=== PATIENT | female | born 1940 | race Caucasian/White ===

== ENCOUNTER 2016-10-27 07:53 | Day surgery (SDC) | payer MEDICARE ==
[2016-10-27] VITALS (8 sets, daily range): BP systolic 95–152; BP diastolic 44–78; PULSE 71–93; RESP 17–20; TEMP 97.6–97.9; O2SAT 95–98
[~2016-10-27] VITALS: Ht 160 cm; Wt 59.1 kg
[~2016-10-27 07:53] MED LIST: ALPR0.25 PO; CITA40 PO; TARC150T PO
[2016-10-27] MEDS ORDERED: OSIM80TA PO (08:12)
[2016-10-27] MEDS ORDERED: DULO1CAP3 PO (08:12)
[2016-10-27] MEDS ORDERED: FOLI1TAB6 PO (08:12)
[2016-10-27] MEDS ORDERED: ACET-822 PO (08:12)
[2016-10-27 08:46] LABS: AUTOMATED NEUTROPHIL # 3.5 TH/MM3 (1.8-7.7); BASOPHIL % 0.3 % (0.0-2.0); EOSINOPHIL # 0.1 TH/MM3 (0-0.4); EOSINOPHIL % 2.6 % (0.0-4.0); HEMATOCRIT 34.2 % (35.0-46.0); HEMO FLAGS DIFF FINAL; LYMPH % 19.3 % (9.0-44.0); MEAN CELL VOLUME 96.9 FL (80.0-100.0); MEAN CORPUSCULAR HEMOGLOBIN 32.4 PG (27.0-34.0); MEAN CORPUSCULAR HGB CONC 33.4 % (32.0-36.0); NEUT % 67.8 % (16.0-70.0); PLATELET COUNT 199 TH/MM3 (150-450); RED BLOOD COUNT 3.53 MIL/MM3 (4.00-5.30); RED CELL DISTRIBUTION WIDTH 14.5 % (11.6-17.2); WHITE BLOOD COUNT 5.2 TH/MM3 (4.0-11.0)
[2016-10-27] MEDS ORDERED: LIDOCAINE 1%/EPINEPHrine 1:100,000 SOLN 20 ML VIAL ONE (08:57)
[2016-10-27] MEDS ORDERED: fentaNYL CITRATE 250 MCG/5 ML AMP ONE (08:59)
[2016-10-27] MEDS ORDERED: MIDAZOLAM HCL 5 MG/5 ML VIAL ONE (08:59)
[2016-10-27] MEDS ORDERED: SODIUM CHLOR 0.9% 1000 ML IV SCH (09:00)
[2016-10-27] MEDS ORDERED: SODIUM CHLORIDE 0.9% FLUSH 10 ML FLUSH IV FLUSH PRN (09:15)
--- NOTE | 2016-10-27 11:42 | RADRPT ---
EXAM DATE/TIME: 10/27/2016 09:23 [facility] COMPARISON: No previous studies available for comparison. INDICATIONS : Left lung biopsy SEDATION TIME: 30 minutes BIOPSY SITE: Left lung MEDICATION(S): 1.) 3 mg midazolam (Versed) IV 2.) 150 mcg fentanyl (Sublimaze) IV DEVICE(S): 1.) 18 gauge Alva blunt needle 2.) 20 gauge Temno core biopsy needle MEDICAL HISTORY : Carcinoma, breast. Carcinoma, lung. SURGICAL HISTORY : ENCOUNTER: Initial ACUITY: 1 day PAIN SCORE: 0/10 LOCATION: lower chest A total of three core specimen(s) were obtained and sent to the laboratory for pathologic evaluation. PROCEDURE: 1. CT guided lung biopsy. 2. Conscious sedation with continuous EKG and oximetry monitoring. 3. EKG and oximetry remained stable throughout the procedure. Prior to the procedure informed consent was obtained. Any appropriate prior imaging studies were rev iewed. Using automated exposure control and adjustment of the mA and/or kV according to patient size, radiation dose was kept as low as reasonably achievable to obtain optimal diagnostic quality images. DICOM format image data is available electronically for review and comparison. The site was prepped in a sterile fashion. Full sterile technique was used, including cap, mask, brian rile gloves and gown and a large sterile sheet. Hand hygiene and 2% chlorhexidine and/or betadine/al cohol prep was utilized per protocol for cutaneous antisepsis. The skin and subcutaneous tissues wer e infiltrated with local anesthetic solution. Under CT guidance an 18 gauge blunt was placed down to the lesion posteriorly in the left lung. 3 co res were obtained. Material was submitted for culture as well. Follow-up CT scan reveals no pneumothorax. Conscious sedation was performed with the prescribed dosages and duration as above in the presence of an independent trained radiology nurse to assist in the monitoring of the patient. EKG and oximetry remained stable throughout the procedure. The patient tolerated the procedure well and there were no complications. The patient was sent to Radiology Outpatient Unit in stable condition. CONCLUSION: Uncomplicated CT guided biopsy. Preliminary pathology is a cellular specimen. Cultures were canceled. Betnon Fernández MD FACR on October 27, 2016 at 11:38 Board Certified Radiologist. This report was verified electronically.
--- NOTE | 2016-10-27 12:45 | RADRPT ---
EXAM DATE/TIME: 10/27/2016 12:17 [facility] COMPARISON: No previous studies available for comparison. INDICATIONS : Left lung biopsy. MEDICAL HISTORY : Carcinoma, lung. Carcinoma, breast. SURGICAL HISTORY : port placement ENCOUNTER: Initial ACUITY: 1 day PAIN SCORE: 2/10 LOCATION: Left upper chest FINDINGS: The report is in good position. There is no pneumothorax following left lung biopsy. The heart and p ulmonary vascularity are normal. CONCLUSION: There is no pneumothorax following left lung biopsy. Benton Fernández MD FACR on October 27, 2016 at 12:42 Board Certified Radiologist. This report was verified electronically.
== END 2016-10-27 14:20 | disposition home or self-care (01) ==
LOC: HRAD 07:53 → HRIP 07:57 → HRAD 14:20
PROVIDERS: ATTEND Internal Medicine Hematology & Oncology
DX: R91.8 Other nonspecific abnormal finding of lung field (principal); Z01.818 Encounter for other preprocedural examination; Z85.3 Personal history of malignant neoplasm of breast; Z85.118 Personal history of other malignant neoplasm of bronchus and lung
CPT/HCPCS: 32405; 71010; 77012; 85025; 87015; 87070; 87102; 87116; 87205; 87206; 88305; 88333; 88341; 88342; J2250; J3010; J7030

== ENCOUNTER 2018-01-27 14:54 | Inpatient (IN) ==
--- NOTE | 2018-01-27 16:09 | ED ---
HPI General Chief complaint: Altered Mental Status Stated complaint: AMS Time Seen by Provider: 01/27/18 15:44 History of Present Illness HPI narrative: This is a 77-year-old female with history of metastatic adenocarcinoma of the lung, presents via EMS for evaluation. The patient reports that she underwent chemotherapy approximately 2 weeks ago via her oncologist Dr. Livingston. She reports over the past 2 weeks she has had generalized weakness, especially in her legs. She reports that she has been having difficulty to ambulate secondary to weakness. The patient reports that typically she ambulates with a walker. She currently lives with her sister. She reports that she is also forgetful and this is making it difficult for her to provide additional history. During review of systems she reports a dry cough which is not new. She denies chest pain, shortness of breath, headache, dizziness, lightheadedness, nausea, vomiting, abdominal pain. Symptoms are moderate. She has no other complaints at this time. Related Data Home Medications Medication Instructions Recorded Confirmed dexamethasone mg PO 01/27/18 duloxetine mg PO 01/27/18 ondansetron HCl mg PO 01/27/18 ranitidine HCl mg PO DAILY 01/27/18 tramadol mg PO 01/27/18 Allergies Allergy/AdvReac Type Severity Reaction Status Date / Time No Known Allergies Allergy Unverified 01/27/18 15:41 Review of Systems ROS: all other systems reviewed are negative [facility] Medical History Medical History Adenocarcinoma of lung, stage 4 (Acute) Adult failure to thrive (Acute) Bilateral cataracts (Acute) Bone metastases (Acute) Brain metastases (Acute) History of breast cancer (Acute) Surgical History Surgical History History of lumpectomy (Acute) S/P breast biopsy (Acute) Family History Family History Father Carcinoma, lung Social History Social History Second Hand Smoke Exposure: Yes Smoking Status: Former smoker How Often Do You Have a Drink Containing Alcohol: Never Recent Travel in [place] within the Last 8 Weeks: No Recent Out of Country Travel within the Last 8 Weeks: No Exam Narrative Exam Narrative: GENERAL: Well-developed well-nourished female no acute distress. Alert and oriented x3. SKIN: Warm and dry. HEAD: Atraumatic. Normocephalic. EYES: Pupils equal and round. No scleral icterus. No injection or drainage. ENT: No nasal bleeding or discharge. Mucous membranes pink and moist. NECK: Trachea midline. No JVD. CARDIOVASCULAR: Regular rate and rhythm. No murmur appreciated. RESPIRATORY: No accessory muscle use. Crackles noted at the lung bases. GASTROINTESTINAL: Abdomen soft, non-tender, nondistended. Hepatic and splenic margins not palpable. MUSCULOSKELETAL: No obvious deformities. No clubbing. No cyanosis. No edema. NEUROLOGICAL: Awake and alert. No obvious cranial nerve deficits. Motor grossly within normal limits. Normal speech. Course Initial Documented Vital Signs Temperature 99 F 01/27/18 15:33 Pulse Rate 96 H 01/27/18 15:33 Respiratory Rate 17 01/27/18 15:33 Blood Pressure 161/78 H 01/27/18 15:33 Pulse Oximetry 100 01/27/18 15:33 Last Documented Vital Signs Temperature 99 F 01/27/18 15:33 Pulse Rate 103 H 01/27/18 19:50 Respiratory Rate 18 01/27/18 19:50 Blood Pressure 101/55 L 01/27/18 19:50 Pulse Oximetry 100 01/27/18 19:50 Medical Decision Making SULLY Attestation SULLY supervised visit: Yes Attestation: I, Dr. Huynh, have reviewed the advance practice practitioner's documentation and am in agreement, met with the patient face to face, made the diagnosis, and the medical decision making was done by me. *My assessment and Findings: Patient is a 77-year-old female who presents with complaint of worsening confusion and increased difficulty concentrating. She also describes difficulty walking but states this is chronic. She appears chronically but not acutely ill. CT unremarkable. Xray shows a pneumonia - antibiotics given. Labs relatively unremarkable. She has been admitted to the hospitalist service. [facility] Narrative Medical decision making narrative: The patient was placed on ECG monitoring pulse oximetry. A 12-lead EKG was obtained revealing sinus rhythm with T wave inversions noted in III and AVF. Lab work, chest x-ray, urinalysis ordered. Chest x-ray reveals left-sided pneumonia. Lab work reveals pancytopenia. Potassium is 3.1, oral potassium chloride administered. IV Rocephin and azithromycin administered. Dr. Livingston saw the patient at bedside and does report that she seems more confused than usual. Calcium 8.1, potassium 3.1, oral potassium chloride administered. CT of the brain reveals no acute abnormalities. At this point time the plan is to admit the patient for further treatment. Medical Screen Exam Complete: Yes Emergency Medical Condition: Yes Differential Diagnosis Differential Diagnosis: Metastatic disease versus failure to thrive versus sepsis versus UTI versus delirium versus dehydration Lab Data Result diagrams: 01/27/18 16:43 01/27/18 16:43 Lab Results 01/27/18 01/27/18 01/27/18 Range/Units 15:36 16:43 16:43 WBC 2.3 L (4.0-11.0) th/mm3 RBC 2.69 L (4.00-5.30) mil/mm3 Hgb 8.8 L (11.6-15.3) gm/dL Hct 25.7 L (35.0-46.0) % MCV 95.5 (80.0-100.0) fL MCH 32.7 (27.0-34.0) pg MCHC 34.3 (32.0-36.0) % RDW 14.4 (11.6-17.2) % Plt Count 68 L (150-450) th/mm3 MPV 9.0 (7.0-11.0) fL Prelim Diff (Auto) Slide review pending Neut % (Auto) 59.5 (16.0-70.0) % Lymph % (Auto) 28.2 (9.0-44.0) % Carlton % (Auto) 11.7 H (0.0-8.0) % Eos % (Auto) 0.1 (0.0-4.0) % Baso % (Auto) 0.5 (0.0-2.0) % Neut # (Auto) 1.4 L (1.8-7.7) th/mm3 Lymph # (Auto) 0.6 L (1.0-4.8) th/mm3 Carlton # (Auto) 0.3 (0.0-0.9) th/mm3 Eos # (Auto) 0.0 (0.0-0.4) th/mm3 Baso # (Auto) 0.0 (0.0-0.2) th/mm3 WBC Differential . Diff Scan Auto diff confirmed Differential Comment . Platelet Estimate Low L (Normal) Platelet Morphology Normal (Normal) Sodium 137 (136-145) meq/L Potassium 3.1 L (3.5-5.1) meq/L Chloride 103 (98-107) meq/L Carbon Dioxide 24.1 (21.0-32.0) meq/L Anion Gap 10 (5-15) meq/L BUN 15 (7-18) mg/dL Creatinine 0.63 (0.50-1.00) mg/dL Estimated GFR Greater than 89 (>89) mL/min POC Glucose 88 (68-110) mg/dl Random Glucose 79 (74-106) mg/dL Calcium 7.1 L* (8.5-10.1) mg/dL Prot Corrected Calcium 8.1 L (8.5-10.1) mg/dL Total Bilirubin 0.2 (0.2-1.0) mg/dL AST 24 (15-37) U/L ALT 21 (10-53) U/L Alkaline Phosphatase 65 (45-117) U/L Total Creatine Kinase 123 (26-192) U/L Troponin I 0.02 (0.02-0.05) ng/mL Total Protein 5.2 L (6.4-8.2) g/dL Albumin 1.9 L (3.4-5.0) g/dL TSH 0.811 (0.358-3.740) uIU/mL Urine Color (Yellw/Straw) Urine Clarity (Clear) Urine pH (5.0-8.5) Ur Specific Tutor [place] (1.002-1.035) Urine Protein (Neg-Trace) mg/dL Urine Glucose (UA) (Negative) mg/dL Urine Ketones (Negative) mg/dL Urine Occult Blood (Negative) Urine Nitrate (Negative) Urine Bilirubin (Negative) Urine Urobilinogen (Less than 2) mg/dL Ur Leukocyte Esterase (Negative) Urine WBC (0-5) /hpf Hyaline Casts (0-3) /lpf Urine Mucus (Occasional) /lpf Micro UA Comment Ur Microscopic Review Urine Culture Comments 01/27/18 Range/Units 17:30 WBC (4.0-11.0) th/mm3 RBC (4.00-5.30) mil/mm3 Hgb (11.6-15.3) gm/dL Hct (35.0-46.0) % MCV (80.0-100.0) fL MCH (27.0-34.0) pg MCHC (32.0-36.0) % RDW (11.6-17.2) % Plt Count (150-450) th/mm3 MPV (7.0-11.0) fL Prelim Diff (Auto) Neut % (Auto) (16.0-70.0) % Lymph % (Auto) (9.0-44.0) % Carlton % (Auto) (0.0-8.0) % Eos % (Auto) (0.0-4.0) % Baso % (Auto) (0.0-2.0) % Neut # (Auto) (1.8-7.7) th/mm3 Lymph # (Auto) (1.0-4.8) th/mm3 Carlton # (Auto) (0.0-0.9) th/mm3 Eos # (Auto) (0.0-0.4) th/mm3 Baso # (Auto) (0.0-0.2) th/mm3 WBC Differential Diff Scan Differential Comment Platelet Estimate (Normal) Platelet Morphology (Normal) Sodium (136-145) meq/L Potassium (3.5-5.1) meq/L Chloride (98-107) meq/L Carbon Dioxide (21.0-32.0) meq/L Anion Gap (5-15) meq/L BUN (7-18) mg/dL Creatinine (0.50-1.00) mg/dL Estimated GFR (>89) mL/min POC Glucose (68-110) mg/dl Random Glucose (74-106) mg/dL Calcium (8.5-10.1) mg/dL Prot Corrected Calcium (8.5-10.1) mg/dL Total Bilirubin (0.2-1.0) mg/dL AST (15-37) U/L ALT (10-53) U/L Alkaline Phosphatase (45-117) U/L Total Creatine Kinase (26-192) U/L Troponin I (0.02-0.05) ng/mL Total Protein (6.4-8.2) g/dL Albumin (3.4-5.0) g/dL TSH (0.358-3.740) uIU/mL Urine Color Betina (Yellw/Straw) Urine Clarity Hazy H (Clear) Urine pH 5.0 (5.0-8.5) Ur Specific Tutor Key 1.026 (1.002-1.035) Urine Protein 30 H (Neg-Trace) mg/dL Urine Glucose (UA) Negative (Negative) mg/dL Urine Ketones Negative (Negative) mg/dL Urine Occult Blood Negative (Negative) Urine Nitrate Negative (Negative) Urine Bilirubin Negative (Negative) Urine Urobilinogen Less than 2 (Less than 2) mg/dL Ur Leukocyte Esterase Negative (Negative) Urine WBC 3 (0-5) /hpf Hyaline Casts 7 (0-3) /lpf Urine Mucus Few H (Occasional) /lpf Micro UA Comment Cath-culture not ind Ur Microscopic Review Not Reportable Urine Culture Comments Cath-cult not ind Imaging Data Radiologist's impression: Chest X-Ray 01/27/18 16:06 CONCLUSION: Left lung base consolidation may represent pneumonia. Left apical pleural thickening and parenchymal process of uncertain age possibly chronic. Head CT 01/27/18 16:07 CONCLUSION: 1. No acute intracranial abnormality demonstrated. 2. Atrophy and chronic white matter changes. 3. Stable subcentimeter focus of parenchymal enhancement in the region of the left basal ganglia/insular cortex. Discharge Plan Discharge Disposition Patient Disposition: 30 Still Patient Discharge Condition Condition: Stable Discharge Details Diagnosis: Altered mental status, Pneumonia, Generalized weakness, Hypokalemia Physicians Team ED Provider: Maria Huynh ED Midlevel Provider: Tato Wren Primary Care Provider: Lawrence Bunch Attending Provider: Yeimy Lou Other Providers: Bernadette Mathews Status ED Status: Admitted Observation Patient
--- NOTE | 2018-01-27 17:17 | XR ---
EXAM DATE: 01/27/2018 4:06 PM EDT AGE/SEX: 77 years / Female INDICATIONS: Cough. CLINICAL DATA: This is the patient's initial encounter. Patient reports that signs and symptoms have been present for 1 day and indicates a pain score of 0/10. MEDICAL/SURGICAL HISTORY: Carcinoma, lung. . [place]. COMPARISON: No prior exams available for comparison. FINDINGS: Right IJ line is present with tip overlapping the expected region of the SVC. Left lung b ase consolidation is present with pleural thickening in left apex and chronic parenchymal changes lef t upper lung as well. Heart and mediastinum are unremarkable for technique. CONCLUSION: Left lung base consolidation may represent pneumonia. Left apical pleural thickening and parenchymal process of uncertain age possibly chronic. Electronically signed by: Sameer Rosa MD 01/27/2018 5:16 PM EDT
[2018-01-27 17:28] LABS: Baso % (Auto) 0.5 % (0.0-2.0); Eos % (Auto) 0.1 % (0.0-4.0); Hematocrit 25.7 % (35.0-46.0); Hemoglobin 8.8 gm/dL (11.6-15.3); Lymph # (Auto) 0.6 th/mm3 (1.0-4.8); Lymph % (Auto) 28.2 % (9.0-44.0); Mean Corpuscular HGB Conc 34.3 % (32.0-36.0); Mean Corpuscular Hemoglobin 32.7 pg (27.0-34.0); Mean Corpuscular Volume 95.5 fL (80.0-100.0); Mono # (Auto) 0.3 th/mm3 (0.0-0.9); Mono % (Auto) 11.7 % (0.0-8.0); Neut # (Auto) 1.4 th/mm3 (1.8-7.7); Neut % (Auto) 59.5 % (16.0-70.0); Platelet Count 68 th/mm3 (150-450); Red Blood Count 2.69 mil/mm3 (4.00-5.30); Red Cell Distribution Width 14.4 % (11.6-17.2); White Blood Count 2.3 th/mm3 (4.0-11.0)
[2018-01-27] MEDS ORDERED: Azithromycin Inj 500 MG in Sodium Chlor 0.9% Inj 250 ML IV.SIG ONE (17:31)
--- NOTE | 2018-01-27 18:02 | P.CON ---
History of Present Illness Service: Hematology/ONcology. Consult date: 01/27/18 Primary Care Provider: Lawrence Bunch MD Family Provider: Lawrence Bunch MD Chief Complaint: Confusion, weakness, fatigue. History of Present Illness: Ms. Cross is an 77-year-old female who is well-known to me from my outpatient practice. Combination systemic therapy with carboplatin, pemetrexed, Avastin in July 2012 she was initiated onThe patient was diagnosed with metastatic adenocarcinoma of the lung initially in June 2012, the patient had EGFR mutation positive disease, after receiving 1 cycle of this combination she was transitioned to targeted therapy with erlotinib. 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 I would like to add patient did receive immunotherapy as well for about 8 months earlier this year, this was sandwiched in between Tagrisso treatments. Most recently she was found to have disease progression and was transitioned to palliative systemic therapy with a combination of carboplatin and Abraxane. She had also received extensive palliative radiation to symptomatic metastases involving her left posterior chest wall as well as brain metastases (the brain metastases were treated with stereotactic radiation). Over the past several weeks the patient has been increasingly fatigued, she has required increased assistance with activities of daily living, following initiation of palliative systemic therapy last week she had become increasingly dehydrated, her oral intake had diminished and she was having difficulty getting up out of bed. Additional symptoms included worsening left sided posterior chest wall pain. I did speak to the patient's sister earlier this week, they were advised increasing pain medication dosing with tramadol and she was advised to come into the emergency department should her condition deteriorate. Upon presentation the emergency department patient appears to be somewhat confused, she tells me herself that she is "losing it". Imaging studies performed the emergency department; chest x-ray indicates left hemithorax pleural effusion and possible pneumonia. She is also noted to be pancytopenic which is likely related to recent systemic chemotherapy. Review of Systems Constitutional: Reports anorexia, Reports daytime sleepiness, Reports malaise, Reports weakness, Reports weight loss, Denies chills Eyes: Denies change in vision Ears, Nose, Mouth, and Throat: Denies change in voice Cardiovascular: Reports chest pain, Reports lightheadedness, Reports shortness of breath Respiratory: Denies change in phlegm color Gastrointestinal: Denies abdominal pain, Denies vomiting Genitourinary: Denies pelvic pain Musculoskeletal: Reports abnormal walking, Reports back pain, Reports decreased muscle mass, Reports joint pain, Denies body aches Skin/Breast: Reports itching Comments: Generalized peeling skin rash over the face, following administration of carboplatin. Neurologic: Reports weakness, Denies abnormal hearing, Denies abnormal speech Psychiatric: Reports anxiety, Denies abnormal sleep pattern Comments: Patient reports feeling confused. Endocrine: Denies cold intolerance Hematologic/Lymphatic: Denies easy bleeding Allergic/Immunologic: Denies GI upset with certain foods PMFSH - History History Provided By: Patient - Medical History Medical History: Medical History (Last Updated 01/27/18 @ 17:54 by Earnest Livingston MD) Adenocarcinoma of lung, stage 4 Adult failure to thrive Bilateral cataracts Bone metastases Brain metastases History of breast cancer - Surgical History Surgical History: Surgical History (Last Updated 01/27/18 @ 17:54 by Earnest Livingston MD) History of lumpectomy S/P breast biopsy - Family History Family History: Family History (Last Updated 01/27/18 @ 17:54 by Earnest Livingston MD) Father Carcinoma, lung - Social History I have reviewed the patient's Social History: Yes - Tobacco History Second Hand Smoke Exposure: Yes Tobacco Use In Past 30 Days: No Smoking Status: Former smoker - Alcohol History How Often Do You Have a Drink Containing Alcohol: Never - Travel History Recent Travel in the [place] Within the Last 8 Weeks: No Recent Travel Out of the Country Within the Last 8 Weeks: No - Immunization History Tetanus Immunization: Unsure Medications and Allergies Active Medications: Active Medications Ceftriaxone Sodium 2,000 mg/ (Sodium Chloride) 100 mls @ 200 mls/hr IV.SIG ONCE ONE Stop: 01/27/18 18:00 Last Admin: 01/27/18 17:39 Dose: 200 mls/hr Azithromycin 500 mg/ Sodium (Chloride) 250 mls @ 250 mls/hr IV.SIG ONCE ONE Stop: 01/27/18 18:30 Last Admin: 01/27/18 17:41 Dose: 250 mls/hr Sodium Chloride (Ns Flush) 2 ml IV.FLUSH PRN PRN PRN Reason: FLUSH AFTER USING IV ACCESS Last Admin: 01/27/18 17:40 Dose: 2 ml Allergies Allergy/AdvReac Type Severity Reaction Status Date / Time No Known Allergies Allergy Unverified 01/27/18 15:41 Home Medications Medication Instructions Recorded Confirmed Type dexamethasone mg PO 01/27/18 History duloxetine mg PO 01/27/18 History ondansetron HCl mg PO 01/27/18 History ranitidine HCl mg PO DAILY 01/27/18 History tramadol mg PO 01/27/18 History Physical Exam Vital signs: Vital Signs 01/27/18 15:33 01/27/18 16:38 01/27/18 17:30 Temperature 99 F Pulse Rate 96 H 92 H Respiratory Rate 17 20 Blood Pressure 161/78 H 141/86 H Pulse Oximetry 100 98 97 Intake & Output 01/26/18 01/27/18 01/27/18 18:59 06:59 18:59 Weight 49.895 kg Narrative: Elderly lady, laying in bed, appears to be somewhat confused. She is somewhat frail-appearing, pale, skin on her face is peeling, erythema noted. - Constitutional cachectic, chronically ill appearing, somnolent - Routine HEENT Exam Head: Present: normocephalic. Absent: atraumatic, cushingoid faces Eye: Present: EOMI, PERRL, normal accommodation. Absent: conjunctival icterus ENT: Present: mucous membranes moist - Routine Neck Exam Present: supple, full ROM. Absent: JVD, carotid bruit, tenderness, swelling, trachea midline, tracheal deviation - Routine Respiratory Exam Present: crackles (Over the left base.), diminished air movement (Over the left base.). Absent: accessory muscle use, rales, wheezes - Routine Cardiovascular Exam Present: RRR, S1, S2. Absent: murmur, gallop - Routine Abdominal Exam Present: soft. Absent: tenderness, distended, rebound, organomegaly, mass, hernia - Routine Extremities Exam Comments: Generally decreased muscle mass, tone and strength. But no focal localized sensorimotor deficits. - Routine Skin Exam Present: intact, erythema, dry, pallor. Absent: mottling, wounds, cracked, gangrene, ecchymosis - Routine Neurological Exam Present: alert, CN II-XII intact. Absent: sensory deficit, motor deficit ( Oriented to person place and time.) - Detailed Neurological Exam: Coma Scale Eye Opening: Spontaneous - Routine Psychiatric Exam Comments: Somewhat confused as compared to baseline. - Urinary Catheter Management Straight Cath placed during this visit: yes, but has since been removed by the nurse Reason for continuing: Not indwelling catheter Insertion date: 01/27/18 Insertion time: 17:29 Removal date: 01/27/18 Assessment and Plan - Plan Ms. Cross is a 77-year-old female with a history of metastatic EGFR mutation positive lung carcinoma which was initially diagnosed in the spring 2012. She has been on several targeted agents which have been outlined in the history of presenting illness. Most recently she was initiated on palliative systemic chemotherapy with a combination of carboplatin and Abraxane about 3 weeks ago. She has not tolerated treatment well and had been complaining of symptoms of progressive fatigue, weakness, anorexia and skin rashes since treatment was initiated. Of note over the past several months her disease has rapidly progressed with increase symptomatic bony metastases which were treated with palliative radiation (involving her spine and ribs) as well as recent findings of brain metastases which were treated with stereotactic radiation (less than 1 cm lesion). She presents to the hospital due to progressive weakness and confusion. Blood work performed in the emergency department indicates pancytopenia on CBC, chemistries are pending at this time. Chest x-ray indicates a right lower lobe infiltrate. On clinical exam and she appears to be confused beyond baseline. Recommendations: 1. Confusion: Obtain imaging studies of the brain to rule out worsening brain metastases. 2. Metastatic lung carcinoma: She completed cycle #1 carboplatin and Abraxane last week. Treatment will remain on hold because of her poor tolerance of treatment. I am not certain she will be able to tolerate additional treatment with this regimen. 3. Pancytopenia: Related to chemotherapy related myelosuppression. 4. Should she have new findings of worsening brain metastases I would recommend initiation of corticosteroids and supportive care. I will need to discuss further goals of care with the patient, based on what her sister is indicated to me the patient is considering hospice care. Await results of additional workup.
[2018-01-27 18:05] LABS: Bilirubin,Urine Negative (Negative); Clarity,Urine Hazy (Clear); Color,Urine Amber (Yellw/Straw); Glucose,Urine (UA) Negative (Negative); Hyaline Casts,Urine 7 /lpf (0-3); Leukocyte Esterase,Urine Negative (Negative); Mucus,Urine Few /lpf (Occasional); Nitrite,Urine Negative (Negative); Specific Gravity,Urine 1.026 (1.002-1.035)
[2018-01-27 18:08] LABS: Alanine Aminotransferase 21 U/L (10-53); Albumin 1.9 g/dL (3.4-5.0); Alkaline Phosphatase 65 U/L (45-117); Anion Gap 10 meq/L (5-15); Aspartate Aminotransferase 24 U/L (15-37); Blood Urea Nitrogen 15 mg/dL (7-18); Calcium 7.1 mg/dL (8.5-10.1); Carbon Dioxide 24.1 meq/L (21.0-32.0); Chloride 103 meq/L (98-107); Creatine Kinase 123 U/L (26-192); Glomerular Filtration Rate Greater Than 89 mL/min (>89); Glucose,Random 79 mg/dL (74-106); Potassium 3.1 meq/L (3.5-5.1); Sodium 137 meq/L (136-145); Thyroid Stimulating Hormone 0.811 uIU/mL (0.358-3.740); Total Protein 5.2 g/dL (6.4-8.2); Troponin I 0.02 ng/mL (0.02-0.05)
[2018-01-27 18:14] LABS: Platelet Morphology Normal (Normal)
[2018-01-27] MEDS: oxyCODONE/Acetaminophen 10/325 Tablet PO PRN (18:22)
--- NOTE | 2018-01-27 19:29 | CT ---
EXAM DATE: 01/27/2018 4:07 PM EDT AGE/SEX: 77 years / Female INDICATIONS: Altered mental status. CLINICAL DATA: This is the patient's initial encounter. Patient reports that signs and symptoms have been present for 1 day and indicates a pain score of Nonresponsive. MEDICAL/SURGICAL HISTORY: Carcinoma, lung. None. RADIATION DOSE: 33.23 CTDI (mGy) COMPARISON: TLI, MR BRAIN W AND W/O CONTRAST, 07/17/2012. POI, MR BRAIN W AND W/O CONTRAST, 10/07. . TECHNIQUE: Axial images of the head were acquired without contrast and after intravenous administrat ion of 50 ml Omnipaque 350 (iohexol) nonionic water-soluble contrast as a single exam dose. Using automated exposure control and adjustment of the mA and/or kV according to patient size, radiation do se was kept as low as reasonably achievable to obtain optimal diagnostic quality images. DICOM forma t image data is available electronically for review and comparison. FINDINGS: Cerebrum: The ventricles are normal for age. 5 mm subcortical enhancing focus along the left insula r cortex is not significantly changed. No evidence of midline shift, new mass lesion, hemorrhage or a cute infarction. No extraaxial fluid collections are seen. Atrophy and chronic low-attenuation seen in the periventricular white matter. Posterior Fossa: The cerebellum and brainstem are intact. The 4th ventricle is midline. The cerebe llopontine angle is unremarkable. Extracranial: The visualized portion of the orbits is intact. Skull: The calvaria is intact. No evidence of skull fracture. Post Contrast: No abnormal areas of parenchymal or dural enhancement. No evidence of blood-brain ba rrier breakdown. CONCLUSION: 1. No acute intracranial abnormality demonstrated. 2. Atrophy and chronic white matter changes. 3. Stable subcentimeter focus of parenchymal enhancement in the region of the left basal ganglia/ins ular cortex. Electronically signed by: Facundo Osorio MD 01/27/2018 7:28 PM EDT
[2018-01-27] MEDS ORDERED: Bisacodyl 10 MG Supp RECTAL PRN (19:51)
--- NOTE | 2018-01-27 19:53 | P.HPIM ---
History of Present Illness Primary Care Physician: Lawrence Bunch MD Chief Complaint: Confusion, weakness, fatigue. History of Present Illness: This is a 77-year-old female with a PMH of Metastatic Lung CA w/ HAND PACKAGER/Bone Mets, h/o Breast CA and h/o Breast CA who was brought to the ER by family secondary to confusion and worsening weakness. Unable to obtain history from patient at this time as she is lethargic from Ativan she received for CT. History obtained from Ex- at bedside who is her single ending machine operator in addition to pt's niece. Per Ex-, pt was driving and walking as usual approx 2wks ago, however has had progressive decline in function due to lower extremity weakness. Notes symptoms worse in the last 1wk. Also noted to have increasing confusion/forgetfulness x2-3 days. No reported fever/chills or recent illness. Follows w/ Dr. Livingston and undergoing chemotherapy, s/p Radiation by Dr. Calle to Lumbar Spine. On arrival, BP 161/78, HR 96, O2 sat 100% on 2L NC, Temp 99. WBC 2.3, Hemoglobin 8.8, Platelets 68, previously WBC 2.4, Hemoglobin 10.4 and Platelets 85 on 01/20/2018. K+ 3.1. UA negative for UTI. CXR with left lung base consolidation. CT Head with no acute findings, stable subcentimeter focus of enhancement in left basal ganglia. S/p eval in ER by Dr. Livingston, will re-eval for treatment options vs possible hospice. - Diagnosis (1) Encephalopathy (2) PNA (pneumonia) (3) Metastatic lung carcinoma (4) Pancytopenia (5) Weakness (6) Hypokalemia Review of Systems PAST FAMILY HISTORY: Reviewed. No h/o DM or CAD unobtainable due to mental status PMFSH - History History Provided By: Patient - Medical History Medical History: Medical History (Last Updated 01/27/18 @ 17:54 by Earnest Livingston MD) Adenocarcinoma of lung, stage 4 Adult failure to thrive Bilateral cataracts Bone metastases Brain metastases History of breast cancer - Surgical History Surgical History: Surgical History (Last Updated 01/27/18 @ 17:54 by Earnest Livingston MD) History of lumpectomy S/P breast biopsy - Family History Family History: Family History (Last Updated 01/27/18 @ 17:54 by Earnest Livingston MD) Father Carcinoma, lung - Tobacco History Second Hand Smoke Exposure: Yes Tobacco Use In Past 30 Days: No Smoking Status: Former smoker - Alcohol History How Often Do You Have a Drink Containing Alcohol: Never - Travel History Recent Travel in the [place] Within the Last 8 Weeks: No Recent Travel Out of the Country Within the Last 8 Weeks: No - Immunization History Tetanus Immunization: Unsure Medications and Allergies Active Medications: Active Medications Oxycodone/Acetaminophen (Percocet 10/325 Mg) 1 tab PO Q4H PRN PRN Reason: Non-Acute Pain Last Admin: 01/27/18 18:22 Dose: 1 tab Sodium Chloride (Ns Flush) 2 ml IV.FLUSH PRN PRN PRN Reason: FLUSH AFTER USING IV ACCESS Last Admin: 01/27/18 18:21 Dose: 2 ml Allergies Allergy/AdvReac Type Severity Reaction Status Date / Time No Known Allergies Allergy Unverified 01/27/18 15:41 Home Medications Medication Instructions Recorded Confirmed Type dexamethasone mg PO 01/27/18 History duloxetine mg PO 01/27/18 History ondansetron HCl mg PO 01/27/18 History ranitidine HCl mg PO DAILY 01/27/18 History tramadol mg PO 01/27/18 History Exam Vital signs: Vital Signs 01/27/18 15:33 01/27/18 16:38 01/27/18 17:30 Temperature 99 F Pulse Rate 96 H 92 H Respiratory Rate 17 20 Blood Pressure 161/78 H 141/86 H Pulse Oximetry 100 98 97 01/27/18 19:50 Temperature Pulse Rate 103 H Respiratory Rate 18 Blood Pressure 101/55 L Pulse Oximetry 100 Intake & Output 01/27/18 01/27/18 01/28/18 06:59 18:59 06:59 Intake Total 100 / 100 250 / 250 Balance 100 / 100 250 / 250 Weight 49.895 kg Intake: IV 100 / 100 250 / 250 Azithromycin Inj 500 MG In NS 250 / 250 Inj 250 ML @ 250 mls/hr IV.SIG ONCE ONE Rx#:[id number] Rocephin Inj 2,000 MG In NS Inj 100 / 100 100 ML @ 200 mls/hr IV.SIG ONCE ONE Rx#:[id number] Narrative: PE: GENERAL: Elderly white female in no acute distress, lethargic after Ativan, resting soundly, Ex- at bedside. SKIN: Focused skin assessment warm and dry. HEENT: PERRLA, EOMI. No scleral icterus or conjunctival pallor. No lid lag or facial droop. CARDIOVASCULAR: Regular rate and rhythm. No obvious murmurs to auscultation. No chest tenderness to palpation. RESPIRATORY: No obvious rhonchi or wheezing. Clear to auscultation. Breath sounds equal bilaterally. GASTROINTESTINAL: Abdomen soft, non-tender, nondistended. BS normal. MUSCULOSKELETAL: Extremities without clubbing, cyanosis, or edema. No obvious deformities. NEUROLOGICAL: Lethargic from Ativan. No focal neurologic deficits. Moving both upper and lower extremities spontaneously. PSYCHIATRIC: Appropriate mood and affect. Insight and judgment normal. Results - Labs CBC & Chem 7: 01/27/18 16:43 01/27/18 16:43 Labs: Short CBC 01/27/18 Range/Units 16:43 WBC 2.3 L (4.0-11.0) th/mm3 Hgb 8.8 L (11.6-15.3) gm/dL Hct 25.7 L (35.0-46.0) % Plt Count 68 L (150-450) th/mm3 BMP 01/27/18 16:43 Sodium 137 Potassium 3.1 L Chloride 103 Carbon Dioxide 24.1 BUN 15 Creatinine 0.63 Calcium 7.1 L* Cardiac Enzymes 01/27/18 Range/Units 16:43 Total Creatine Kinase 123 (26-192) U/L Troponin I 0.02 (0.02-0.05) ng/mL Liver Function 01/27/18 Range/Units 16:43 Total Bilirubin 0.2 (0.2-1.0) mg/dL AST 24 (15-37) U/L ALT 21 (10-53) U/L Alkaline Phosphatase 65 (45-117) U/L Albumin 1.9 L (3.4-5.0) g/dL Urine 01/27/18 Range/Units 17:30 Urine Color [place] (Yellw/Straw) Urine Clarity Hazy H (Clear) Urine pH 5.0 (5.0-8.5) Ur Specific [place] 1.026 (1.002-1.035) Urine Protein 30 H (Neg-Trace) mg/dL Urine Glucose (UA) Negative (Negative) mg/dL - Imaging Impressions Chest X-Ray 01/27/18 16:06 CONCLUSION: Left lung base consolidation may represent pneumonia. Left apical pleural thickening and parenchymal process of uncertain age possibly chronic. Head CT 01/27/18 16:07 CONCLUSION: 1. No acute intracranial abnormality demonstrated. 2. Atrophy and chronic white matter changes. 3. Stable subcentimeter focus of parenchymal enhancement in the region of the left basal ganglia/insular cortex. Caprini VTE Risk Assessment Caprini VTE Risk Assessment: No/Low Risk (score <= 1) Caprini Risk Assessment Model: Point Value = 1 Point Value = 2 Point Value = 3 Point Value = 5 Age 41-60 Minor surgery BMI > 25 kg/m2 Swollen legs Varicose veins or History of unexplained or recurrent spontaneous Oral contraceptives or hormone replacement Sepsis (< 1 month) Serious lung disease, including pneumonia (< 1 month) Abnormal pulmonary function Acute myocardial infarction Congestive heart failure (< 1 month) History of inflammatory bowel disease Medical patient at bed rest Age 61-74 Arthroscopic surgery Major open surgery (> 45 min) Laparoscopic surgery (> 45 min) Malignancy Confined to bed (> 72 hours) Immobilizing plaster cast Central venous access Age >= 75 History of VTE Family history of VTE Factor V Leiden Prothrombin [id number] Lupus anticoagulant Anticardiolipin antibodies Elevated serum homocysteine Heparin-induced thrombocytopenia Other congenital or acquired thrombophilia Stroke (< 1 month) Elective arthroplasty Hip, pelvis, or leg fracture Acute spinal cord injury (< 1 month) Prophylaxis Regimen: Total Risk Factor Score Risk Level Prophylaxis Regimen 0-1 Low Early ambulation 2 Moderate Order ONE of the following: *Sequential Compression Device (SCD) *Heparin 5000 units SQ BID 3-4 Higher Order ONE of the following medications: *Heparin 5000 units SQ TID *Enoxaparin/Lovenox 40 mg SQ daily (WT < 150 kg, CrCl > 30 mL/min) *Enoxaparin/Lovenox 30 mg SQ daily (WT < 150 kg, CrCl > 10-29 mL/min) *Enoxaparin/Lovenox 30 mg SQ BID (WT < 150 kg, CrCl > 30 mL/min) AND/OR *Sequential Compression Device (SCD) 5 or more Highest Order ONE of the following medications: *Heparin 5000 units SQ TID (Preferred with Epidurals) *Enoxaparin/Lovenox 40 mg SQ daily (WT < 150 kg, CrCl > 30 mL/min) *Enoxaparin/Lovenox 30 mg SQ daily (WT < 150 kg, CrCl > 10-29 mL/min) *Enoxaparin/Lovenox 30 mg SQ BID (WT < 150 kg, CrCl > 30 mL/min) AND *Sequential Compression Device (SCD) Assessment and Plan - Assessment (1) Encephalopathy Code(s): G93.40 - Encephalopathy, unspecified Status: Acute (2) PNA (pneumonia) Code(s): J18.9 - Pneumonia, unspecified organism Status: Acute (3) Metastatic lung carcinoma Code(s): C78.00 - Secondary malignant neoplasm of unspecified lung Status: Acute (4) Pancytopenia Code(s): D61.818 - Other pancytopenia Status: Acute (5) Weakness Code(s): R53.1 - Weakness Status: Acute (6) Hypokalemia Code(s): E87.6 - Hypokalemia Status: Acute - Plan A/P: 1. Encephalopathy: progressive confusion/forgetfulness per family, CT Head w/ no acute findings, images reviewed, however in light of h/o HAND PACKAGER Mets and current mental status, would likely benefit from MRI Brain-will await Oncology recommendations for further assessment. Recent U/a for which she was on antibiotics as outpatient, U/a currently normal. Admit for further observation , Neuro Checks. 2. PNA: CXR w/ left base consolidation, s/p Rocephin/Zithro, will continue w/ IV Abx, DuoNeb prn. 3. Metastatic Lung CA: h/o Lung CA w/ HAND PACKAGER/Bone Mets, s/p Radiation, currently on Chemotherapy, follows w/ Dr. Livingston, s/p eval in ER, will follow. 4. Pancytopenia: WBC 2.3, Hgb 8.8, Platelets 68, slightly worse in comparison to previous labs from 01/20/18, likely due to chemo, will re-evaluate labs in am. 5. Weakness: progressive lower extremity weakness per family, h/o L-Spine lesion w/ previous radiation by Dr. Calle, consider imaging of L-spine for further evaluation, will need to discuss w/ patient/family whether they wish to proceed w/ aggressive management/treatment. PT for eval/tx 6. Hypokalemia: K+ 3.1, s/p replacement in ER, will recheck and replace as needed. 7. DVT Prophylaxis: SCD/Teds 8. Social work for d/c planning as needed 9. Case discussed w/ ER physician at length, labs/records/imaging reviewed by me
[2018-01-27] MEDS: Sod Chloride 0.9% Inj 1,000 ML IV.CONT SCH (23:09)
[2018-01-27] MEDS: Senna/Docusate Sodium 8.6/50 MG Tablet PO SCH (23:09)
[2018-01-28 07:23] LABS: Hematocrit 25.9 % (35.0-46.0); Hemoglobin 9.2 gm/dL (11.6-15.3); Mean Corpuscular HGB Conc 35.5 % (32.0-36.0); Mean Corpuscular Hemoglobin 33.4 pg (27.0-34.0); Mean Corpuscular Volume 94.2 fL (80.0-100.0); Mean Platelet Volume 8.6 fL (7.0-11.0); Platelet Count 58 th/mm3 (150-450); Red Blood Count 2.75 mil/mm3 (4.00-5.30); Red Cell Distribution Width 14.6 % (11.6-17.2); White Blood Count 2.4 th/mm3 (4.0-11.0)
[2018-01-28 07:26] LABS: Alanine Aminotransferase 22 U/L (10-53); Anion Gap 10 meq/L (5-15); Aspartate Aminotransferase 25 U/L (15-37); Blood Urea Nitrogen 12 mg/dL (7-18); Calcium 7.6 mg/dL (8.5-10.1); Carbon Dioxide 21.3 meq/L (21.0-32.0); Chloride 107 meq/L (98-107); Glomerular Filtration Rate 89 mL/min (>89); Glucose,Random 72 mg/dL (74-106); Sodium 138 meq/L (136-145)
[2018-01-28 07:28] LABS: Alkaline Phosphatase 69 U/L (45-117); Total Protein 5.2 g/dL (6.4-8.2)
[2018-01-28 07:33] LABS: Potassium 3.8 meq/L (3.5-5.1)
[2018-01-28 08:19] LABS: Dohle Bodies Present; Lymphocytes 19 % (9-44); Metamyelocytes 1 % (0-1); Monocytes 14 % (0-8); Plasma Cells 1 % (0-0); Tallied Nucleated RBC 2 (0-0); Toxic Granulation 2+
[2018-01-28 08:20] LABS: Platelet Morphology Normal (Normal)
[2018-01-28] MEDS: Sod Chloride 0.9% Inj 1,000 ML IV.CONT SCH (09:19)
[2018-01-28] MEDS: Senna/Docusate Sodium 8.6/50 MG Tablet PO SCH ×2 (09:19→21:53)
--- NOTE | 2018-01-28 10:00 | P.PNONC ---
Subjective Interval history: Afebrile Patient reports she still feels "off" Has been at the bedside states she has had increasing weakness with inability to walk At times she reports she cannot feel her legs Had an episode this morning of urinary incontinence No bleeding Currently not having any pain Objective Vital Signs/Intake & Output: Vital Signs 01/27/18 15:33 01/27/18 16:38 01/27/18 17:30 Temperature 99 F Pulse Rate 96 H 92 H Respiratory Rate 17 20 Blood Pressure 161/78 H 141/86 H Pulse Oximetry 100 98 97 01/27/18 19:50 01/27/18 22:45 01/27/18 22:58 Temperature 98.4 F Pulse Rate 103 H 93 H 91 H Respiratory Rate 18 16 Blood Pressure 101/55 L 117/67 Pulse Oximetry 100 100 01/28/18 00:12 01/28/18 00:55 01/28/18 04:00 Temperature 97.3 F L 98.0 F Pulse Rate 91 H 88 100 H Respiratory Rate 16 16 Blood Pressure 111/62 127/79 Pulse Oximetry 99 98 01/28/18 08:12 Temperature Pulse Rate 109 H Respiratory Rate Blood Pressure Pulse Oximetry Intake & Output 01/27/18 01/28/18 01/28/18 18:59 06:59 18:59 Intake Total 100 / 100 400 / 400 850 / 850 Balance 100 / 100 400 / 400 850 / 850 Weight 110 lb 107 lb 12.897 oz Intake: IV 100 / 100 250 / 250 850 / 850 NS Inj 1,000 ML @ 100 mls/hr IV 850 / 850 .CONT .Q10H JEREMÍAS Rx#:[id number] Azithromycin Inj 500 MG In NS 250 / 250 Inj 250 ML @ 250 mls/hr IV.SIG ONCE ONE Rx#:[id number] Rocephin Inj 2,000 MG In NS Inj 100 / 100 100 ML @ 200 mls/hr IV.SIG ONCE ONE Rx#:[id number] Oral 150 / 150 Other: # Voids 2 Date of Last Bowel Movement 01/24/18 Result Diagrams: 01/28/18 05:57 01/28/18 05:57 Laboratory Results: Laboratory Results - last 24 hr 01/27/18 01/27/18 01/27/18 15:36 16:43 16:43 WBC 2.3 L RBC 2.69 L Hgb 8.8 L Hct 25.7 L MCV 95.5 MCH 32.7 MCHC 34.3 RDW 14.4 Plt Count 68 L MPV 9.0 Prelim Diff (Auto) Slide review pending Neut % (Auto) 59.5 Lymph % (Auto) 28.2 Curry % (Auto) 11.7 H Eos % (Auto) 0.1 Baso % (Auto) 0.5 Neut # (Auto) 1.4 L Lymph # (Auto) 0.6 L Curry # (Auto) 0.3 Eos # (Auto) 0.0 Baso # (Auto) 0.0 WBC Differential . Diff Scan Auto diff confirmed Seg Neuts % (Manual) Band Neuts % (Manual) Lymphocytes % (Manual) Monocytes % (Manual) Metamyelocytes % (Man) Plasma Cell % (Manual) Abs Neuts (Manual) Nucleated RBCs/100 WBC Differential Comment . Toxic Granulation Dohle Bodies Platelet Estimate Low L Platelet Morphology Normal Hematology Comments Sodium 137 Potassium 3.1 L Chloride 103 Carbon Dioxide 24.1 Anion Gap 10 BUN 15 Creatinine 0.63 Estimated GFR Greater than 89 POC Glucose 88 Random Glucose 79 Calcium 7.1 L* Prot Corrected Calcium 8.1 L Total Bilirubin 0.2 AST 24 ALT 21 Alkaline Phosphatase 65 Total Creatine Kinase 123 Troponin I 0.02 Total Protein 5.2 L Albumin 1.9 L TSH 0.811 Urine Color Urine Clarity Urine pH Ur Specific [place] Urine Protein Urine Glucose (UA) Urine Ketones Urine Occult Blood Urine Nitrate Urine Bilirubin Urine Urobilinogen Ur Leukocyte Esterase Urine WBC Hyaline Casts Urine Mucus Micro UA Comment Ur Microscopic Review Urine Culture Comments 01/27/18 01/28/18 01/28/18 17:30 05:57 05:57 WBC 2.4 L RBC 2.75 L Hgb 9.2 L Hct 25.9 L MCV 94.2 MCH 33.4 MCHC 35.5 RDW 14.6 Plt Count 58 L MPV 8.6 Prelim Diff (Auto) Manual diff required Neut % (Auto) Lymph % (Auto) Curry % (Auto) Eos % (Auto) Baso % (Auto) Neut # (Auto) Lymph # (Auto) Curry # (Auto) Eos # (Auto) Baso # (Auto) WBC Differential Manual diff final Diff Scan Seg Neuts % (Manual) 33 Band Neuts % (Manual) 32 H Lymphocytes % (Manual) 19 Monocytes % (Manual) 14 H Metamyelocytes % (Man) 1 Plasma Cell % (Manual) 1 H Abs Neuts (Manual) 1.6 L Nucleated RBCs/100 WBC 2 H Differential Comment . Toxic Granulation 2+ H Dohle Bodies Present H Platelet Estimate Low L Platelet Morphology Normal Hematology Comments Sodium 138 Potassium 3.8 Chloride 107 Carbon Dioxide 21.3 Anion Gap 10 BUN 12 Creatinine 0.65 Estimated GFR 89 POC Glucose Random Glucose 72 L Calcium 7.6 L Prot Corrected Calcium Total Bilirubin 0.2 AST 25 ALT 22 Alkaline Phosphatase 69 Total Creatine Kinase Troponin I Total Protein 5.2 L Albumin 2.0 L TSH Urine Color [place] Urine Clarity Hazy H Urine pH 5.0 Ur Specific [place] 1.026 Urine Protein 30 H Urine Glucose (UA) Negative Urine Ketones Negative Urine Occult Blood Negative Urine Nitrate Negative Urine Bilirubin Negative Urine Urobilinogen Less than 2 Ur Leukocyte Esterase Negative Urine WBC 3 Hyaline Casts 7 Urine Mucus Few H Micro UA Comment Cath-culture not ind Ur Microscopic Review Not Reportable Urine Culture Comments Cath-cult not ind Imaging Studies: Impressions Chest X-Ray 01/27/18 16:06 CONCLUSION: Left lung base consolidation may represent pneumonia. Left apical pleural thickening and parenchymal process of uncertain age possibly chronic. Head CT 01/27/18 16:07 CONCLUSION: 1. No acute intracranial abnormality demonstrated. 2. Atrophy and chronic white matter changes. 3. Stable subcentimeter focus of parenchymal enhancement in the region of the left basal ganglia/insular cortex. Medications: Active Medications Generic Name Dose Route Start Last Admin Trade Name Freq PRN Reason Stop Dose Admin Sodium Chloride 1,000 mls @ 100 mls/hr 01/27/18 20:00 01/28/18 09:19 Ns Inj IV.CONT 100 mls/hr .Q10H JEREMÍAS Administration Oxycodone/Acetaminophen 1 tab 01/27/18 18:07 01/27/18 18:22 Percocet 10/325 Mg PO 1 tab Q4H PRN Administration Non-Acute Pain Senna/Docusate Sodium 1 tab 01/27/18 21:00 01/28/18 09:19 Concha-Colace PO 1 tab BID JEREMÍAS Administration Sodium Chloride 2 ml 01/27/18 16:06 01/27/18 18:21 Ns Flush IV.FLUSH 2 ml PRN PRN Administration FLUSH AFTER USING IV ACCESS Objective Remarks: GENERAL: Chronically ill-appearing older female resting in bed drinking hot tea. She appears comfortable at present. SKIN: Warm and dry. HEAD: Normocephalic. EYES: No scleral icterus. No injection or drainage. NECK: Supple, trachea midline. No JVD or lymphadenopathy. CARDIOVASCULAR: Regular rate and rhythm without murmurs. Tachycardic RESPIRATORY: Clear anteriorly. Breathing unlabored at rest. GASTROINTESTINAL: Abdomen soft, non-tender, nondistended. EXTREMITIES: No cyanosis, or edema. MUSCULOSKELETAL: Generalized weakness NEUROLOGICAL: Complains of paresthesias in bilateral lower extremities. Awake and alert. Assessment/Plan - Plan Ms. Cross is an 77-year-old female who is well-known to me from my outpatient practice. Combination systemic therapy with carboplatin, pemetrexed, Avastin in July 2012 she was initiated onThe patient was diagnosed with metastatic adenocarcinoma of the lung initially in June 2012, the patient had EGFR mutation positive disease, after receiving 1 cycle of this combination she was transitioned to targeted therapy with erlotinib. 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 I would like to add patient did receive immunotherapy as well for about 8 months earlier this year, this was sandwiched in between Tagrisso treatments. Most recently she was found to have disease progression and was transitioned to palliative systemic therapy with a combination of carboplatin and Abraxane. She had also received extensive palliative radiation to symptomatic metastases involving her left posterior chest wall as well as brain metastases (the brain metastases were treated with stereotactic radiation). Her last chemotherapy was reportedly on 20 January. 1. Obtain MRI of the lumbar spine. The patient had a previous MRI on November 30 of this year that showed extensive bony metastatic disease to L2. She also had one episode of urinary incontinence today. I would like to rule out worsening metastatic disease or possibly cauda equina syndrome. 2. Reviewed CT the brain showed no intracranial abnormality. 3. Continue supportive care.
--- NOTE | 2018-01-28 13:18 | ECG ---
Date Performed: 01/27/2018 Time Performed: 15:39:10 PTAGE: 77 years EKG: Sinus rhythm BORDERLINE RIGHT AXIS DEVIATION NONSPECIFIC T-WAVE ABNORMALITY BORDERLINE ECG INTERPRETATION BASED O N A DEFAULT AGE OF 42 YEARS PREVIOUS TRACING : 08/27/2013 11.35 DOCTOR: Princess Lay Interpretating Date/Time 01/28/2018 13:12:49
[2018-01-28] MEDS ORDERED: Gadobutrol PF 7.5 MMOL/7.5 ML Vial (for RAD) IV.SIG ONE (13:46)
--- NOTE | 2018-01-28 14:27 | MR ---
EXAM DATE: 01/28/2018 12:10 PM EDT AGE/SEX: 77 years / Female INDICATIONS: Inability to ambulate. Increased weakness. CLINICAL DATA: This is the patient's initial encounter. Patient reports that signs and symptoms have been present for 2 days and indicates a pain score of 2/10. MEDICAL/SURGICAL HISTORY: Carcinoma, breast. Carcinoma, lung. Carcinoma, head and neck. . Tamara ast lumpectomy. COMPARISON: POI, MR LUMBAR SPINE W AND W/O CONTRAST, 11/30/2017. . TECHNIQUE: Multiplanar, multisequence MRI examination of the lumbar spine was performed without and with 5cc ml Gadavist (gadobutrol) contrast as a single exam dose. FINDINGS: The most caudal-appearing lumbar vertebra is numbered as L5. Today's examination is compared to the prior study of 11/30/2017. 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 This was present on the prior study and appears to be about the same. There is some extension posteriorly by about 7 mm which is no t significantly changed compared to the prior study. There continues to be some stable grade 1 anteri or spondylolisthesis of L4 over L5. There is a stable Schmorl's node along the inferior endplate of L 1 with some mild stable compression.. No pathologic compression fractures are seen at this time. On t he axial slice images there continues to be mild to moderate spinal canal stenosis at the level of L2 secondary to be extension of the neoplastic disease posteriorly. This is not significantly changed c ompared to the prior exam. There continues to be some narrowing of the right neural foramina at the l evel of L2-3. There continues to be diffuse moderate broad-based bulging L4-5 with bilateral facet ar thritis and hypertrophy ligamentum flavum causing focal severe spinal canal stenosis. This is also no t significantly changed. CONCLUSION: 1. Compared to the prior examination of 11/30/2017, there has been no significant changes with the ove rall appearance of the lumbar spine. 2. There continues to be evidence of neoplastic disease of bony destruction involving the L2 vertebr al body with extension of bony neoplastic disease posteriorly by about 7 mm creating mild to moderat e focal spinal canal stenosis. 3. There continues to be focal severe spinal canal stenosis at L4-5 from grade 1 anterior spondyloli sthesis of L4 over L5, diffuse disc bulging, facet arthritis and hypertrophy ligamentum flavum. This is not significantly changed. Electronically signed by: Howard Kline MD 01/28/2018 2:25 PM EDT
--- NOTE | 2018-01-28 14:35 | MR ---
EXAM DATE: 01/28/2018 1:27 PM EDT AGE/SEX: 77 years / Female INDICATIONS: Inability to ambulate. Increased weakness. CLINICAL DATA: This is the patient's initial encounter. Patient reports that signs and symptoms have been present for 2 days and indicates a pain score of 2/10. MEDICAL/SURGICAL HISTORY: Carcinoma, breast. Carcinoma, lung. Carcinoma, head and neck. . Tamara ast lumpectomy. COMPARISON: POI, MR THORACIC SPINE W AND W/O CONTRAST, 12/09/2017. . TECHNIQUE: Multiplanar, multisequence MRI of the thoracic spine was performed without and with 5cc m l Gadavist (gadobutrol) contrast as a single exam dose. FINDINGS: Vertebrae: Normal vertebral body height. Homogeneous marrow signal. There is no evidence of a marro w replacing process involving the thoracic vertebral bodies to suggest bony metastatic disease. These findings are stable compared to the prior examination of 12/09/2017. No compression fracture injuries are demonstrated. 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 The appearance is not significantly changed compared to the prior exa m. Alignment: Normal. Cord: Normal position and configuration. Post Contrast: No abnormal areas of enhancement are seen in the cord, dural or paraspinal regions. T1-T2: The thecal sac has a normal diameter. No evidence of disc bulge or protrusion. T2-T3: The thecal sac has a normal diameter. No evidence of disc bulge or protrusion. T3-T4: The thecal sac has a normal diameter. No evidence of disc bulge or protrusion. T4-T5: The thecal sac has a normal diameter. No evidence of disc bulge or protrusion. T5-T6: The thecal sac has a normal diameter. No evidence of disc bulge or protrusion. T6-T7: The thecal sac has a normal diameter. No evidence of disc bulge or protrusion. T7-T8: The thecal sac has a normal diameter. No evidence of disc bulge or protrusion. T8-T9: The thecal sac has a normal diameter. No evidence of disc bulge or protrusion. T9-T10: The thecal sac has a normal diameter. No evidence of disc bulge or protrusion. T10-T11: The thecal sac has a normal diameter. No evidence of disc bulge or protrusion. T11-T12: The thecal sac has a normal diameter. No evidence of disc bulge or protrusion. T12-L1: The thecal sac has a normal diameter. No evidence of disc bulge or protrusion. CONCLUSION: 1. Stable follow-up MRI of the thoracic spine compared to the prior examination. Specifically, no ev idence of any focal or new bony metastatic disease involving the thoracic spine. 2. 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 Electronically signed by: Howard Kline MD 01/28/2018 2:34 PM EDT
--- NOTE | 2018-01-28 14:40 | MR ---
EXAM DATE: 01/28/2018 1:27 PM EDT AGE/SEX: 77 years / Female INDICATIONS: Inability to ambulate. Increased weakness. CLINICAL DATA: This is the patient's initial encounter. Patient reports that signs and symptoms have been present for 2 days and indicates a pain score of 2/10. MEDICAL/SURGICAL HISTORY: Carcinoma, breast. Carcinoma, lung. Carcinoma, head and neck. . Tamara ast lumpectomy. COMPARISON: POI, MR BRAIN W AND W/O CONTRAST, 10/07/2017. . TECHNIQUE: Multiplanar, multisequence examination of the brain was performed without and with 5cc ml Gadavist (gadobutrol) contrast as a single exam dose. FINDINGS: Cerebrum: The ventricles are normal for age. There is stable bilateral cortical atrophy. No evidence of midline shift, mass lesion, hemorrhage or acute infarction. No extraaxial fluid collections are seen. The pituitary gland and suprasellar cistern are normal in configuration. White Matter: Stable chronic appearing white matter changes. Posterior Fossa: The cerebellum and brainstem are intact. The 4th ventricle is midline. The cerebel lopontine angle is unremarkable. The cerebellar tonsils are normal in position. Diffusion Imaging: No focal areas of restricted diffusion are seen. No evidence of acute infarction . Extracranial: The visualized portions of the orbits and paranasal sinuses are unremarkable. Post Contrast: There continues to be a tiny area of enhancement involving the anterior left insular cortex which appears to be slightly decreased in size compared to the prior exam. This may actually j ust be a vessel. Otherwise, there is no enhancing parenchymal mass occupying lesions demonstrated on today's examination. There has been no new or significant changes compared to the prior study. CONCLUSION: 1. Stable follow-up MRI of the brain compared to the prior examination. There continues to be a tiny area of enhancement involving the anterior left insular cortex which is actually smaller in size on today's study. Suspect this is most likely a blood vessel. 2. No definite enhancing mass occupying lesions are seen to indicate brain metastatic disease. 3. Stable bilateral cortical atrophy. Electronically signed by: Howard Kline MD 01/28/2018 2:39 PM EDT
--- NOTE | 2018-01-28 15:10 | P.PNIM ---
Subjective Interval history: The patient just got back from MRI. Her sister was at the bedside. They were curious about the MRI results. Discussed with nursing. Physical Exam Vital signs: Vital Signs 01/27/18 15:33 01/27/18 16:38 01/27/18 17:30 Temperature 99 F Pulse Rate 96 H 92 H Respiratory Rate 17 20 Blood Pressure 161/78 H 141/86 H Pulse Oximetry 100 98 97 01/27/18 19:50 01/27/18 22:45 01/27/18 22:58 Temperature 98.4 F Pulse Rate 103 H 93 H 91 H Respiratory Rate 18 16 Blood Pressure 101/55 L 117/67 Pulse Oximetry 100 100 01/28/18 00:12 01/28/18 00:55 01/28/18 04:00 Temperature 97.3 F L 98.0 F Pulse Rate 91 H 88 100 H Respiratory Rate 16 16 Blood Pressure 111/62 127/79 Pulse Oximetry 99 98 01/28/18 08:00 01/28/18 08:12 01/28/18 12:16 Temperature 98.3 F 98.9 F Pulse Rate 107 H 109 H 93 H Respiratory Rate 20 22 Blood Pressure 124/70 129/71 Pulse Oximetry 99 100 01/28/18 13:56 Temperature Pulse Rate 94 H Respiratory Rate Blood Pressure Pulse Oximetry Intake & Output 01/27/18 01/28/18 01/28/18 18:59 06:59 18:59 Intake Total 100 / 100 400 / 400 850 / 850 Balance 100 / 100 400 / 400 850 / 850 Weight 49.895 kg 48.9 kg Intake: IV 100 / 100 250 / 250 850 / 850 NS Inj 1,000 ML @ 100 mls/hr IV 850 / 850 .CONT .Q10H JEREMÍAS Rx#:[id number] Azithromycin Inj 500 MG In NS 250 / 250 Inj 250 ML @ 250 mls/hr IV.SIG ONCE ONE Rx#:[id number] Rocephin Inj 2,000 MG In NS Inj 100 / 100 100 ML @ 200 mls/hr IV.SIG ONCE ONE Rx#:[id number] Oral 150 / 150 Other: # Voids 2 Date of Last Bowel Movement 01/24/18 Narrative: GENERAL: Elderly female in no acute distress. SKIN: Focused skin assessment warm and dry. HEENT: PERRLA, EOMI. No scleral icterus or conjunctival pallor. No lid lag or facial droop. CARDIOVASCULAR: Regular rate and rhythm. No obvious murmurs to auscultation. No chest tenderness to palpation. RESPIRATORY: No obvious rhonchi or wheezing. Clear to auscultation. Breath sounds equal bilaterally. GASTROINTESTINAL: Abdomen soft, non-tender, nondistended. BS normal. MUSCULOSKELETAL: Extremities without clubbing, cyanosis, or edema. No obvious deformities. NEUROLOGICAL: No focal neurologic deficits. Moving both upper and lower extremities spontaneously. - Urinary Catheter Management Straight Cath placed during this visit: yes, but has since been removed by the nurse Reason for continuing: Not indwelling catheter Insertion date: 01/27/18 Insertion time: 17:29 Removal date: 01/27/18 Results - Labs CBC & Chem 7: 01/28/18 05:57 01/28/18 05:57 Laboratory Results - last 24 hr 01/27/18 01/27/18 01/27/18 15:36 16:43 16:43 WBC 2.3 L RBC 2.69 L Hgb 8.8 L Hct 25.7 L MCV 95.5 MCH 32.7 MCHC 34.3 RDW 14.4 Plt Count 68 L MPV 9.0 Prelim Diff (Auto) Slide review pending Neut % (Auto) 59.5 Lymph % (Auto) 28.2 [place] % (Auto) 11.7 H Eos % (Auto) 0.1 Baso % (Auto) 0.5 Neut # (Auto) 1.4 L Lymph # (Auto) 0.6 L [place] # (Auto) 0.3 Eos # (Auto) 0.0 Baso # (Auto) 0.0 WBC Differential . Diff Scan Auto diff confirmed Seg Neuts % (Manual) Band Neuts % (Manual) Lymphocytes % (Manual) Monocytes % (Manual) Metamyelocytes % (Man) Plasma Cell % (Manual) Abs Neuts (Manual) Nucleated RBCs/100 WBC Differential Comment . Toxic Granulation Dohle Bodies Platelet Estimate Low L Platelet Morphology Normal Hematology Comments Sodium 137 Potassium 3.1 L Chloride 103 Carbon Dioxide 24.1 Anion Gap 10 BUN 15 Creatinine 0.63 Estimated GFR Greater than 89 POC Glucose 88 Random Glucose 79 Calcium 7.1 L* Prot Corrected Calcium 8.1 L Total Bilirubin 0.2 AST 24 ALT 21 Alkaline Phosphatase 65 Total Creatine Kinase 123 Troponin I 0.02 Total Protein 5.2 L Albumin 1.9 L TSH 0.811 Urine Color Urine Clarity Urine pH Ur Specific [place] Urine Protein Urine Glucose (UA) Urine Ketones Urine Occult Blood Urine Nitrate Urine Bilirubin Urine Urobilinogen Ur Leukocyte Esterase Urine WBC Hyaline Casts Urine Mucus Micro UA Comment Ur Microscopic Review Urine Culture Comments 01/27/18 01/28/18 01/28/18 17:30 05:57 05:57 WBC 2.4 L RBC 2.75 L Hgb 9.2 L Hct 25.9 L MCV 94.2 MCH 33.4 MCHC 35.5 RDW 14.6 Plt Count 58 L MPV 8.6 Prelim Diff (Auto) Manual diff required Neut % (Auto) Lymph % (Auto) [place] % (Auto) Eos % (Auto) Baso % (Auto) Neut # (Auto) Lymph # (Auto) [place] # (Auto) Eos # (Auto) Baso # (Auto) WBC Differential Manual diff final Diff Scan Seg Neuts % (Manual) 33 Band Neuts % (Manual) 32 H Lymphocytes % (Manual) 19 Monocytes % (Manual) 14 H Metamyelocytes % (Man) 1 Plasma Cell % (Manual) 1 H Abs Neuts (Manual) 1.6 L Nucleated RBCs/100 WBC 2 H Differential Comment . Toxic Granulation 2+ H Dohle Bodies Present H Platelet Estimate Low L Platelet Morphology Normal Hematology Comments Sodium 138 Potassium 3.8 Chloride 107 Carbon Dioxide 21.3 Anion Gap 10 BUN 12 Creatinine 0.65 Estimated GFR 89 POC Glucose Random Glucose 72 L Calcium 7.6 L Prot Corrected Calcium Total Bilirubin 0.2 AST 25 ALT 22 Alkaline Phosphatase 69 Total Creatine Kinase Troponin I Total Protein 5.2 L Albumin 2.0 L TSH Urine Color [place] Urine Clarity Hazy H Urine pH 5.0 Ur Specific [place] 1.026 Urine Protein 30 H Urine Glucose (UA) Negative Urine Ketones Negative Urine Occult Blood Negative Urine Nitrate Negative Urine Bilirubin Negative Urine Urobilinogen Less than 2 Ur Leukocyte Esterase Negative Urine WBC 3 Hyaline Casts 7 Urine Mucus Few H Micro UA Comment Cath-culture not ind Ur Microscopic Review Not Reportable Urine Culture Comments Cath-cult not ind - Imaging Impressions Chest X-Ray 01/27/18 16:06 CONCLUSION: Left lung base consolidation may represent pneumonia. Left apical pleural thickening and parenchymal process of uncertain age possibly chronic. Head CT 01/27/18 16:07 CONCLUSION: 1. No acute intracranial abnormality demonstrated. 2. Atrophy and chronic white matter changes. 3. Stable subcentimeter focus of parenchymal enhancement in the region of the left basal ganglia/insular cortex. Head MRI 01/28/18 00:00 CONCLUSION: 1. Stable follow-up MRI of the brain compared to the prior examination. There continues to be a tiny area of enhancement involving the anterior left insular cortex which is actually smaller in size on today's study. Suspect this is most likely a blood vessel. 2. No definite enhancing mass occupying lesions are seen to indicate brain metastatic disease. 3. Stable bilateral cortical atrophy. Lumbar Spine MRI 01/28/18 00:00 CONCLUSION: 1. Compared to the prior examination of 11/30/2017, there has been no significant changes with the overall appearance of the lumbar spine. 2. 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 3. There continues to be focal severe spinal canal stenosis at L4-5 from grade 1 anterior spondylolisthesis of L4 over L5, diffuse disc bulging, facet arthritis and hypertrophy ligamentum flavum. This is not significantly changed. Thoracic Spine MRI 01/28/18 00:00 CONCLUSION: 1. Stable follow-up MRI of the thoracic spine compared to the prior examination. Specifically, no evidence of any focal or new bony metastatic disease involving the thoracic spine. 2. 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 Assessment and Plan - Assessment (1) Encephalopathy Code(s): G93.40 - Encephalopathy, unspecified Status: Acute (2) PNA (pneumonia) Code(s): J18.9 - Pneumonia, unspecified organism Status: Acute (3) Metastatic lung carcinoma Code(s): C78.00 - Secondary malignant neoplasm of unspecified lung Status: Acute (4) Pancytopenia Code(s): D61.818 - Other pancytopenia Status: Acute (5) Weakness Code(s): R53.1 - Weakness Status: Acute (6) Hypokalemia Code(s): E87.6 - Hypokalemia Status: Acute - Plan Encephalopathy/ Weakness Progressive confusion/forgetfulness per family, CT Head w/ no acute findings. U/ a currently normal. Progressive lower extremity weakness per family, h/o L- Spine lesion w/ previous radiation by Dr. Calle. MRI of the brain, thoracic and lumbar spine are stable. -PT/OT. -Neuro Checks. -antibiotics. -case management consult for [facility]. PNA CXR w/ left base consolidation, s/p Rocephin/Zithro. -will continue w/ IV Abx. -DuoNeb and oxygen prn. Metastatic lung CA/ Pancytopenia H/o lung cancer w/ [employer]/Bone Mets, s/p Radiation, currently on Chemotherapy, follows w/ Dr. Livingston. Oncology consult appreciated. -follow up with oncology. -follow CBC and transfuse as needed. Hypokalemia K+ 3.1, improved. -follow BMP. Malnutrition/ Hypoglycemia The pt has decreased PO intake. -ADAT. -dietary consult. -D5NS. DVT Prophylaxis: SCD/Teds
[2018-01-28] MEDS: oxyCODONE/Acetaminophen 10/325 Tablet PO PRN (15:15)
[2018-01-28] MEDS: Acetaminophen 325 MG Tablet PO PRN (15:29)
[2018-01-28] MEDS ORDERED: Vancomycin Consult Pharmacy OTHER PRN (15:32)
[2018-01-28] MEDS: Piperacil/Tazo 4.5 GM Premix 4.5 GM/100 ML BAG IV.SIG SCH ×2 (16:51→21:29)
[2018-01-28] MEDS: Vancomycin Inj 850 MG in Sodium Chlor 0.9% Inj 250 ML IV.SIG SCH (18:32)
[2018-01-28] MEDS: Dextrose 5%/NaCl 0.9% Inj 1,000 ML IV.CONT SCH (18:35)
[2018-01-28] MEDS ORDERED: Azithromycin Inj 500 MG in Sodium Chlor 0.9% Inj 250 ML IV.SIG SCH (20:00)
[2018-01-29] MEDS: oxyCODONE/Acetaminophen 10/325 Tablet PO PRN ×2 (04:53→17:33)
[2018-01-29] MEDS: Dextrose 5%/NaCl 0.9% Inj 1,000 ML IV.CONT SCH (04:56)
[2018-01-29] MEDS: Piperacil/Tazo 4.5 GM Premix 4.5 GM/100 ML BAG IV.SIG SCH ×4 (04:56→21:15)
[2018-01-29 07:12] LABS: Baso % (Auto) 0.7 % (0.0-2.0); Eos % (Auto) 0.2 % (0.0-4.0); Hematocrit 22.4 % (35.0-46.0); Hemoglobin 7.8 gm/dL (11.6-15.3); Lymph # (Auto) 0.5 th/mm3 (1.0-4.8); Lymph % (Auto) 26.9 % (9.0-44.0); Mean Corpuscular HGB Conc 34.7 % (32.0-36.0); Mean Corpuscular Hemoglobin 33.7 pg (27.0-34.0); Mean Platelet Volume 7.9 fL (7.0-11.0); Mono # (Auto) 0.2 th/mm3 (0.0-0.9); Mono % (Auto) 11.9 % (0.0-8.0); Neut # (Auto) 1.1 th/mm3 (1.8-7.7); Neut % (Auto) 60.3 % (16.0-70.0); Platelet Count 57 th/mm3 (150-450); Red Blood Count 2.31 mil/mm3 (4.00-5.30); Red Cell Distribution Width 14.8 % (11.6-17.2); White Blood Count 1.9 th/mm3 (4.0-11.0)
[2018-01-29 07:40] LABS: Albumin 1.7 g/dL (3.4-5.0); Calcium 7.3 mg/dL (8.5-10.1); Carbon Dioxide 21.2 meq/L (21.0-32.0); Magnesium 1.5 mg/dL (1.5-2.5); Phosphorus 1.7 mg/dL (2.5-4.9); Total Protein 4.7 g/dL (6.4-8.2)
[2018-01-29 08:34] LABS: Lymphocytes 19 % (9-44); Monocytes 8 % (0-8); Myelocytes 1 % (0-0); Platelet Morphology Normal (Normal); Tallied Nucleated RBC 1 (0-0)
--- NOTE | 2018-01-29 08:40 | P.PNONC ---
Subjective Interval history: Afebrile Patient recently took something for pain and is now resting in bed asleep Per RN she was much more lucid yesterday afternoon Reviewed MRI scans with at the bedside Objective Vital Signs/Intake & Output: Vital Signs 01/28/18 12:16 01/28/18 13:56 01/28/18 15:39 Temperature 98.9 F 100.7 F H Pulse Rate 93 H 94 H 90 Respiratory Rate 22 Blood Pressure 129/71 129/56 L Pulse Oximetry 100 99 01/28/18 16:12 01/28/18 16:53 01/28/18 19:31 Temperature 99.6 F 98.4 F Pulse Rate 102 H 95 H Respiratory Rate 18 Blood Pressure 111/60 Pulse Oximetry 98 01/28/18 19:40 01/29/18 00:07 01/29/18 00:15 Temperature 98.5 F Pulse Rate 93 H 69 69 Respiratory Rate 18 Blood Pressure 135/66 Pulse Oximetry 95 01/29/18 04:21 01/29/18 04:43 01/29/18 05:23 Temperature 98.5 F Pulse Rate 90 78 Respiratory Rate 18 16 Blood Pressure 142/72 H Pulse Oximetry 98 01/29/18 07:33 01/29/18 08:03 01/29/18 08:25 Temperature 98.8 F Pulse Rate 90 73 82 Respiratory Rate 20 Blood Pressure 99/58 L Pulse Oximetry 98 Intake & Output 01/28/18 01/29/18 01/29/18 18:59 06:59 18:59 Intake Total 1650 / 1650 1698.5 / 1698.5 Balance 1650 / 1650 1698.5 / 1698.5 Weight 107 lb 9.369 oz Intake: IV 1650 / 1650 1458.5 / 1458.5 D5W/Normal Saline Inj 1,000 ML 1000 / 1000 @ 100 mls/hr IV.CONT .Q10H JEREMÍAS Rx#:[id number] NS Inj 1,000 ML @ 100 mls/hr IV 1550 / 1550 .CONT .Q10H JEREMÍAS Rx#:[id number] Zosyn 4.5 GM Premix 4.5 gm In 100 / 100 200 / 200 100 ml @ 200 mls/hr IV.SIG Q6H JEREMÍAS Rx#:[id number] Vancomycin Inj 850 MG In NS Inj 258.5 / 258.5 250 ML @ 250 mls/hr IV.SIG Q18H JEREMÍAS Rx#:[id number] Oral 240 / 240 Other: # Voids 7 1 Date of Last Bowel Movement 01/28/18 # Bowel Movements 2 Result Diagrams: 01/29/18 06:51 01/29/18 06:51 Laboratory Results: Laboratory Results - last 24 hr 01/29/18 01/29/18 06:51 06:51 WBC 1.9 L RBC 2.31 L Hgb 7.8 L Hct 22.4 L MCV 97.0 MCH 33.7 MCHC 34.7 RDW 14.8 Plt Count 57 L MPV 7.9 Prelim Diff (Auto) Slide review pending Neut % (Auto) 60.3 Lymph % (Auto) 26.9 [place] % (Auto) 11.9 H Eos % (Auto) 0.2 Baso % (Auto) 0.7 Neut # (Auto) 1.1 L Lymph # (Auto) 0.5 L [place] # (Auto) 0.2 Eos # (Auto) 0.0 Baso # (Auto) 0.0 Differential Comment . Sodium 139 Potassium Chloride 107 Carbon Dioxide 21.2 Anion Gap 11 BUN 7 Creatinine 0.77 Estimated GFR 73 L Random Glucose 136 H Calcium 7.3 L* Phosphorus 1.7 L Magnesium 1.5 Total Bilirubin 0.3 Direct Bilirubin 0.1 Indirect Bilirubin 0.2 AST 25 ALT 19 Alkaline Phosphatase 57 Total Protein 4.7 L Albumin 1.7 L Imaging Studies: Impressions Head MRI 01/28/18 00:00 CONCLUSION: 1. Stable follow-up MRI of the brain compared to the prior examination. There continues to be a tiny area of enhancement involving the anterior left insular cortex which is actually smaller in size on today's study. Suspect this is most likely a blood vessel. 2. No definite enhancing mass occupying lesions are seen to indicate brain metastatic disease. 3. Stable bilateral cortical atrophy. Lumbar Spine MRI 01/28/18 00:00 CONCLUSION: 1. Compared to the prior examination of 11/30/2017, there has been no significant changes with the overall appearance of the lumbar spine. 2. 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 3. There continues to be focal severe spinal canal stenosis at L4-5 from grade 1 anterior spondylolisthesis of L4 over L5, diffuse disc bulging, facet arthritis and hypertrophy ligamentum flavum. This is not significantly changed. Thoracic Spine MRI 01/28/18 00:00 CONCLUSION: 1. Stable follow-up MRI of the thoracic spine compared to the prior examination. Specifically, no evidence of any focal or new bony metastatic disease involving the thoracic spine. 2. 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 Medications: Active Medications Generic Name Dose Route Start Last Admin Trade Name Freq PRN Reason Stop Dose Admin Acetaminophen 650 mg 01/27/18 19:51 01/28/18 15:29 Tylenol PO 650 mg Q4H PRN Administration Temp > 100.4 Dextrose/Sodium Chloride 1,000 mls @ 100 mls/hr 01/28/18 16:00 01/29/18 04:56 D5w/Normal Saline Inj IV.CONT 100 mls/hr .Q10H JEREMÍAS Administration Vancomycin HCl 850 mg/ Sodium 258.5 mls @ 250 mls/hr 01/28/18 17:00 01/28/18 19:37 Chloride IV.SIG Infused Q18H JEREMÍAS Infusion Piperacillin/Tazobactam/Dextrose 4.5 gm in 100 mls @ 200 mls/hr 01/28/18 16: 00 01/29/18 05:26 Zosyn 4.5 Gm Premix IV.SIG Infused Q6H JEREMÍAS Infusion Oxycodone/Acetaminophen 1 tab 01/27/18 18:07 01/29/18 04:53 Percocet 10/325 Mg PO 1 tab Q4H PRN Administration Non-Acute Pain Senna/Docusate Sodium 1 tab 01/27/18 21:00 01/28/18 21:53 Concha-Colace PO Not Given BID JEREMÍAS Sodium Chloride 2 ml 01/27/18 16:06 01/27/18 18:21 Ns Flush IV.FLUSH 2 ml PRN PRN Administration FLUSH AFTER USING IV ACCESS Objective Remarks: GENERAL: Chronically ill-appearing older female resting in bed asleep. Breathing appears easy and unlabored. SKIN: Warm and dry. HEAD: Normocephalic. EYES: No scleral icterus. No injection or drainage. NECK: Supple, trachea midline. No JVD or lymphadenopathy. CARDIOVASCULAR: Regular rate and rhythm without murmurs. RESPIRATORY: Clear anteriorly. Breathing unlabored at rest. GASTROINTESTINAL: Abdomen soft, non-tender, nondistended. EXTREMITIES: No cyanosis, or edema. MUSCULOSKELETAL: Generalized weakness NEUROLOGICAL: Awakens easily. Normal speech. Assessment/Plan - Plan Ms. Cross is an 77-year-old female who is well-known to me from my outpatient practice. Combination systemic therapy with carboplatin, pemetrexed, Avastin in July 2012 she was initiated onThe patient was diagnosed with metastatic adenocarcinoma of the lung initially in June 2012, the patient had EGFR mutation positive disease, after receiving 1 cycle of this combination she was transitioned to targeted therapy with erlotinib. 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 I would like to add patient did receive immunotherapy as well for about 8 months earlier this year, this was sandwiched in between Tagrisso treatments. Most recently she was found to have disease progression and was transitioned to palliative systemic therapy with a combination of carboplatin and Abraxane. She had also received extensive palliative radiation to symptomatic metastases involving her left posterior chest wall as well as brain metastases (the brain metastases were treated with stereotactic radiation). Her last chemotherapy was reportedly on 20 January. 1. MRI of the lumbar and thoracic spine show no evidence of cauda equina syndrome. No other evidence for her inability to walk and lower extremity weakness. 2. Follow-up MRI of the brain shows stable disease. 3. The patient's did discuss that she was on a long course of steroids outpatient. She was currently just weaned to off prior to this hospitalization. We reviewed that this could be contributing to her lower extremity weakness. 4. Continue physical therapy. Continue supportive care. - Attending Statement The exam, history, and the medical decision-making described in the above note were completed with the assistance of the mid-level provider. I reviewed and agree with the findings presented. I attest that I had a [id number] encounter with the patient on the same day, and personally performed and documented my assessment and findings in the medical record. 77 yoF with a history of metastatic NSCLC admitted with worsening weakness of bilateral lower extremity. Patient reports that her weakness has been present since the end of November with acute worsening over the past 2 weeks. She has control of bowel and bladder. She has intact strenght in arms. Imaging studies unrevealing. She is s/p XRT to L2 lesion which ended 2 weeks ago. She was steroids for approximately 3 weeks with a taper off. ? steroid myopathy ( unlikely due to limited time on this medication) vs adrenal insufficency ( patient with no electrolytes disturbance characteristic including hyperkalemia, hyponatremia). Pending evaluation by neurology team. Will order vitamin B12. TSH WNL. Due to weakness further systemic treatment of malignancy is on hold.
[2018-01-29 08:53] LABS: Potassium 2.9 meq/L (3.5-5.1)
[2018-01-29] MEDS ORDERED: Potassium Chlor 40 mEq Premix 40 MEQ/100 ML PIGGYBACK IV.SIG ONE (09:15)
[2018-01-29] MEDS: Senna/Docusate Sodium 8.6/50 MG Tablet PO SCH ×2 (09:38→21:19)
--- NOTE | 2018-01-29 11:55 | P.PNIM ---
Subjective Interval history: The patient was resting in bed comfortably. She says her lower extremities continue to be so weak that she cannot stand. Her family was at the bedside and their questions were answered. Physical Exam Vital signs: Vital Signs 01/28/18 12:16 01/28/18 13:56 01/28/18 15:39 Temperature 98.9 F 100.7 F H Pulse Rate 93 H 94 H 90 Respiratory Rate 22 Blood Pressure 129/71 129/56 L Pulse Oximetry 100 99 01/28/18 16:12 01/28/18 16:53 01/28/18 19:31 Temperature 99.6 F 98.4 F Pulse Rate 102 H 95 H Respiratory Rate 18 Blood Pressure 111/60 Pulse Oximetry 98 01/28/18 19:40 01/29/18 00:07 01/29/18 00:15 Temperature 98.5 F Pulse Rate 93 H 69 69 Respiratory Rate 18 Blood Pressure 135/66 Pulse Oximetry 95 01/29/18 04:21 01/29/18 04:43 01/29/18 05:23 Temperature 98.5 F Pulse Rate 90 78 Respiratory Rate 18 16 Blood Pressure 142/72 H Pulse Oximetry 98 01/29/18 07:33 01/29/18 08:03 01/29/18 08:25 Temperature 98.8 F Pulse Rate 90 73 82 Respiratory Rate 20 Blood Pressure 99/58 L Pulse Oximetry 98 01/29/18 09:47 Temperature Pulse Rate Respiratory Rate Blood Pressure Pulse Oximetry 94 L Intake & Output 01/28/18 01/29/18 01/29/18 18:59 06:59 18:59 Intake Total 1650 / 1650 1698.5 / 1698.5 100 / 100 Balance 1650 / 1650 1698.5 / 1698.5 100 / 100 Weight 48.8 kg Intake: IV 1650 / 1650 1458.5 / 1458.5 100 / 100 D5W/Normal Saline Inj 1,000 ML 1000 / 1000 @ 100 mls/hr IV.CONT .Q10H [facility] Rx#:[id number] NS Inj 1,000 ML @ 100 mls/hr IV 1550 / 1550 .CONT .Q10H [facility] Rx#:[id number] Zosyn 4.5 GM Premix 4.5 gm In 100 / 100 200 / 200 100 / 100 100 ml @ 200 mls/hr IV.SIG Q6H [facility] Rx#:[id number] Vancomycin Inj 850 MG In NS Inj 258.5 / 258.5 250 ML @ 250 mls/hr IV.SIG Q18H [facility] Rx#:[id number] Oral 240 / 240 Other: # Voids 7 1 Date of Last Bowel Movement 01/28/18 # Bowel Movements 2 Narrative: GENERAL: Elderly female in no acute distress. SKIN: Focused skin assessment warm and dry. HEENT: PERRLA, EOMI. No scleral icterus or conjunctival pallor. No lid lag or facial droop. CARDIOVASCULAR: Regular rate and rhythm. No obvious murmurs to auscultation. No chest tenderness to palpation. RESPIRATORY: No obvious rhonchi or wheezing. Clear to auscultation. Breath sounds equal bilaterally. GASTROINTESTINAL: Abdomen soft, non-tender, nondistended. BS normal. MUSCULOSKELETAL: Extremities without clubbing, cyanosis, or edema. No obvious deformities. NEUROLOGICAL: Moving both upper and lower extremities spontaneously. LLE with 4/ 5 strength, RLE with 5/5 strength. LEs with weakness in dorsiflexion. Sensation intact. - Urinary Catheter Management Straight Cath placed during this visit: yes, but has since been removed by the nurse Reason for continuing: Not indwelling catheter Insertion date: 01/27/18 Insertion time: 17:29 Removal date: 01/27/18 Results - Labs CBC & Chem 7: 01/29/18 06:51 01/29/18 06:51 Laboratory Results - last 24 hr 01/29/18 01/29/18 06:51 06:51 WBC 1.9 L RBC 2.31 L Hgb 7.8 L Hct 22.4 L MCV 97.0 MCH 33.7 MCHC 34.7 RDW 14.8 Plt Count 57 L MPV 7.9 Prelim Diff (Auto) Slide review pending Neut % (Auto) 60.3 Lymph % (Auto) 26.9 Pershing % (Auto) 11.9 H Eos % (Auto) 0.2 Baso % (Auto) 0.7 Neut # (Auto) 1.1 L Lymph # (Auto) 0.5 L Pershing # (Auto) 0.2 Eos # (Auto) 0.0 Baso # (Auto) 0.0 WBC Differential Manual diff final Seg Neuts % (Manual) 44 Band Neuts % (Manual) 27 H Lymphocytes % (Manual) 19 Monocytes % (Manual) 8 Basophils % (Manual) 1 Myelocytes % (Man) 1 H Abs Neuts (Manual) 1.4 L Nucleated RBCs/100 WBC 1 H Differential Comment . Platelet Estimate Low L Platelet Morphology Normal Sodium 139 Potassium 2.9 L* D Chloride 107 Carbon Dioxide 21.2 Anion Gap 11 BUN 7 Creatinine 0.77 Estimated GFR 73 L Random Glucose 136 H Calcium 7.3 L* Prot Corrected Calcium 8.6 Phosphorus 1.7 L Magnesium 1.5 Total Bilirubin 0.3 Direct Bilirubin 0.1 Indirect Bilirubin 0.2 AST 25 ALT 19 Alkaline Phosphatase 57 Total Protein 4.7 L Albumin 1.7 L Microbiology 01/28/18 17:37 Blood - Peripheral Aerobic Blood Culture - Preliminary No growth in 1 day 01/28/18 17:37 Blood - Peripheral Anaerobic Blood Culture - Preliminary No growth in 1 day 01/28/18 16:25 Blood - Peripheral Aerobic Blood Culture - Preliminary No growth in 1 day 01/28/18 16:25 Blood - Peripheral Anaerobic Blood Culture - Preliminary No growth in 1 day - Imaging Impressions Head MRI 01/28/18 00:00 CONCLUSION: 1. Stable follow-up MRI of the brain compared to the prior examination. There continues to be a tiny area of enhancement involving the anterior left insular cortex which is actually smaller in size on today's study. Suspect this is most likely a blood vessel. 2. No definite enhancing mass occupying lesions are seen to indicate brain metastatic disease. 3. Stable bilateral cortical atrophy. Lumbar Spine MRI 01/28/18 00:00 CONCLUSION: 1. Compared to the prior examination of 11/30/2017, there has been no significant changes with the overall appearance of the lumbar spine. 2. 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 3. There continues to be focal severe spinal canal stenosis at L4-5 from grade 1 anterior spondylolisthesis of L4 over L5, diffuse disc bulging, facet arthritis and hypertrophy ligamentum flavum. This is not significantly changed. Thoracic Spine MRI 01/28/18 00:00 CONCLUSION: 1. Stable follow-up MRI of the thoracic spine compared to the prior examination. Specifically, no evidence of any focal or new bony metastatic disease involving the thoracic spine. 2. 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 Assessment and Plan - Assessment (1) Encephalopathy Code(s): G93.40 - Encephalopathy, unspecified Status: Acute (2) PNA (pneumonia) Code(s): J18.9 - Pneumonia, unspecified organism Status: Acute (3) Metastatic lung carcinoma Code(s): C78.00 - Secondary malignant neoplasm of unspecified lung Status: Acute (4) Pancytopenia Code(s): D61.818 - Other pancytopenia Status: Acute (5) Weakness Code(s): R53.1 - Weakness Status: Acute (6) Hypokalemia Code(s): E87.6 - Hypokalemia Status: Acute - Plan Encephalopathy/ Weakness Progressive confusion/forgetfulness per family. The pt has also lost the ability to walk over the past few weeks. Exam with LLE weakness and bilateral weakness in dorsiflexion. CT Head w/ no acute findings. U/a currently normal. Progressive lower extremity weakness per family, h/o L-Spine lesion w/ previous radiation by Dr. Calle. MRI of the brain is stable. 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 -PT/OT. -Neuro Checks. -antibiotics. -neurology consult for lower extremity weakness. -case management consult for [facility]. PNA CXR w/ left base consolidation, s/p Rocephin/Zithro. -will continue w/ IV Abx. Change to vancomycin and Zosyn to cover for HCAP. -DuoNeb and oxygen prn. 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 Livingston. Oncology consult appreciated. -follow up with oncology. -follow CBC and transfuse as needed. Hypokalemia Severe. -replete IV and follow BMP. -ADAT. -telemetry. Malnutrition/ Hypoglycemia The pt has decreased PO intake. -ADAT. -dietary consult. -D5NS. DVT Prophylaxis: SCD/Teds
[2018-01-29] MEDS: KCL 20 mEq/D5W/NaCl 0.9% Inj 1,000 ML IV.CONT SCH (12:00)
[2018-01-29] MEDS: Vancomycin Inj 850 MG in Sodium Chlor 0.9% Inj 250 ML IV.SIG SCH (12:21)
[2018-01-29] MEDS: Potassium Phosphate 500 MG Soluble Tablet PO SCH ×2 (12:23→21:19)
--- NOTE | 2018-01-29 13:18 | P.DIET ---
Nutritional Evaluation Type of nutrition evaluation: initial Nutrition consult regarding: Diet Evaluation Nutrition screening: [facility] [place] (01/28 [facility] [place] Malnutrition) Subjective Subjective Comments: Pt reports a poor appetite r/t nausea, recent unintended weight loss Objective - Diagnosis Confusion, Weakness, Fatigue - Objective Lowry body weight: 52 kg % IBW: 93 Body Weight Used for Calculations: Actual (49kg) Energy Needs - Lower Range (kCal/kg): 33 Energy Needs - Upper Range (kCal/kg): 38 Lower Limit kCal/kg (kCals): 1,617 Upper Limit kCal/kg (kCals): 1,862 Lower Limit Protein Factor (Grams per Kg): 1.2 Upper Limit Protein Factor (Grams per Kg): 1.5 Lower Protein Needs (Protein): 59 Upper Protein Needs (Protein): 74 Fluid Factor (ml/kg): 30 Estimated Fluid Needs (ml): 1,470 Dietitian Reviewed in Medical Record: Current diet, Curent medications, Intake & Output, Labs, Medical history Diet Order: Regular diet with Enlive TID Oral Diet Intake Amount: Poor <50% Objective Comments: PMH: 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 Pt reports a poor appetite and nausea, nursing indicates pt is eating 25% of meals. Her nutritional needs are as stated above. She is currently on a regular diet and receiving Enlive tid, each provides 350kcals and 20gms protein. Reviewed MD notes, labs, meds. Pt is at 93% of her ideal body weight with a BMI of 19.1. Present po intake is not adequate to meet her nutritional needs. Recommend Theragran M daily. Also recommend considering an appetite stimulant. Will monitor po intake and make recs according to clinical course. Recommendations: Regular diet with Enlive tid Recommend Theragran M daily Recommend considering an appetite stimulant
[2018-01-29 20:27] LABS: Potassium 3.2 meq/L (3.5-5.1)
[2018-01-29 20:55] LABS: Total Protein 4.6 g/dL (6.4-8.2)
[2018-01-30] MEDS: oxyCODONE/Acetaminophen 10/325 Tablet PO PRN ×4 (00:18→20:13)
[2018-01-30] MEDS: KCL 20 mEq/D5W/NaCl 0.9% Inj 1,000 ML IV.CONT SCH ×4 (00:19→23:54)
[2018-01-30] MEDS: Piperacil/Tazo 4.5 GM Premix 4.5 GM/100 ML BAG IV.SIG SCH ×4 (04:12→22:51)
[2018-01-30] MEDS: Vancomycin Inj 850 MG in Sodium Chlor 0.9% Inj 250 ML IV.SIG SCH (05:16)
--- NOTE | 2018-01-30 08:17 | P.PNONC ---
Subjective Interval history: Patient was seen and examined, vital signs, labs, medications, imaging studies and sales and leasing consultant notes reviewed. Subjectively; patient reports feeling more awake and alert, she is however very concerned about her leg weakness. She tells me she is unable to stand and needs assistance with all activities of daily living which require ambulation. She denies having significant pain though her back does feel sore when she moves. Patient tells me she would like to work with physical therapy to help regain some of her lower extremity strength. She tells me she would also like to meet with hospice to discuss comfort measures and comfort oriented care. Objective Vital Signs/Intake & Output: Vital Signs 01/29/18 08:25 01/29/18 09:47 01/29/18 12:00 Temperature 98 F Pulse Rate 82 90 Respiratory Rate 16 Blood Pressure 119/62 Pulse Oximetry 94 L 99 01/29/18 16:00 01/29/18 16:11 01/29/18 17:37 Temperature 101 F H 101.3 F H Pulse Rate 101 H Respiratory Rate Blood Pressure Pulse Oximetry 01/29/18 20:09 01/29/18 20:50 01/30/18 00:01 Temperature 99.1 F Pulse Rate 91 H 94 H 79 Respiratory Rate 16 Blood Pressure 102/53 L Pulse Oximetry 97 01/30/18 00:12 01/30/18 04:00 01/30/18 04:06 Temperature 98.8 F 99.8 F H Pulse Rate 92 H 104 H 110 H Respiratory Rate 18 16 Blood Pressure 125/72 142/75 H Pulse Oximetry 99 95 Intake & Output 01/29/18 01/30/18 01/30/18 18:59 06:59 18:59 Intake Total 1258.5 / 1258.5 1660 / 1660 Output Total 250 / 250 Balance 1258.5 / 1258.5 1410 / 1410 Weight 48.7 kg Intake: IV 1258.5 / 1258.5 1220 / 1220 D5W/Normal Saline Inj 1,000 ML 700 / 700 @ 100 mls/hr IV.CONT .Q10H [facility] Rx#:[id number] D5W/NS + KCL 20 mEq Inj 1,000 1000 / 1000 ML @ 100 mls/hr IV.CONT .Q10H [facility] Rx#:[id number] Zosyn 4.5 GM Premix 4.5 gm In 200 / 200 220 / 220 100 ml @ 200 mls/hr IV.SIG Q6H [facility] Rx#:[id number] KCl 40 mEq Premix Inj 40 meq In 100 / 100 100 ml @ 25 mls/hr IV.SIG ONCE ONE Rx#:[id number] Vancomycin Inj 850 MG In NS Inj 258.5 / 258.5 250 ML @ 250 mls/hr IV.SIG Q18H [facility] Rx#:[id number] Oral 440 / 440 Output: Urine 250 / 250 Other: # Incontinent Voids 1 Date of Last Bowel Movement 01/28/18 Result Diagrams: 01/29/18 06:51 01/29/18 18:46 Laboratory Results: Laboratory Results - last 24 hr 01/29/18 01/29/18 01/29/18 06:51 06:51 06:51 WBC Differential Manual diff final Seg Neuts % (Manual) 44 Band Neuts % (Manual) 27 H Lymphocytes % (Manual) 19 Monocytes % (Manual) 8 Basophils % (Manual) 1 Myelocytes % (Man) 1 H Abs Neuts (Manual) 1.4 L Nucleated RBCs/100 WBC 1 H Platelet Estimate Low L Platelet Morphology Normal Sodium Potassium 2.9 L* D Cancelled Chloride Carbon Dioxide Anion Gap BUN Creatinine Estimated GFR Random Glucose Calcium Prot Corrected Calcium 8.6 Total Protein Vitamin B12 01/29/18 18:46 WBC Differential Seg Neuts % (Manual) Band Neuts % (Manual) Lymphocytes % (Manual) Monocytes % (Manual) Basophils % (Manual) Myelocytes % (Man) Abs Neuts (Manual) Nucleated RBCs/100 WBC Platelet Estimate Platelet Morphology Sodium 139 Potassium 3.2 L Chloride 110 H Carbon Dioxide 20.0 L Anion Gap 9 BUN 7 Creatinine 0.83 Estimated GFR 67 L Random Glucose 140 H Calcium 7.0 L* Prot Corrected Calcium 8.4 L Total Protein 4.6 L Vitamin B12 779 Culture Results: Microbiology 01/28/18 17:37 Aerobic Blood Culture - Preliminary Blood - Peripheral No growth in 1 day Anaerobic Blood Culture - Preliminary No growth in 1 day 01/28/18 16:25 Aerobic Blood Culture - Preliminary Blood - Peripheral No growth in 1 day Anaerobic Blood Culture - Preliminary No growth in 1 day Medications: Active Medications Generic Name Dose Route Start Last Admin Trade Name Freq PRN Reason Stop Dose Admin Acetaminophen 650 mg 01/27/18 19:51 01/28/18 15:29 Tylenol PO 650 mg Q4H PRN Administration Temp > 100.4 Vancomycin HCl 850 mg/ Sodium 258.5 mls @ 250 mls/hr 01/28/18 17:00 01/30/18 05:16 Chloride IV.SIG 250 mls/hr Q18H [facility] Administration Piperacillin/Tazobactam/Dextrose 4.5 gm in 100 mls @ 200 mls/hr 01/28/18 16: 00 01/30/18 05:17 Zosyn 4.5 Gm Premix IV.SIG Infused Q6H [facility] Infusion Potassium Chloride/Dextrose/Sod Cl 1,000 mls @ 100 mls/hr 01/29/18 12:00 12/10 00:19 D5w/Ns + Kcl 20 Meq Inj IV.CONT 100 mls/hr .Q10H [facility] Administration Oxycodone/Acetaminophen 1 tab 01/27/18 18:07 01/30/18 04:30 Percocet 10/325 Mg PO 1 tab Q4H PRN Administration Non-Acute Pain Potassium Phosphate 500 mg 01/29/18 11:00 01/29/18 21:19 K-Phos Original PO 500 mg BID [facility] Administration Senna/Docusate Sodium 1 tab 01/27/18 21:00 01/29/18 21:19 Concha-Colace PO Not Given BID [facility] Sodium Chloride 2 ml 01/27/18 16:06 01/27/18 18:21 Ns Flush IV.FLUSH 2 ml PRN PRN Administration FLUSH AFTER USING IV ACCESS Objective Remarks: GENERAL: Elderly lady, laying in bed, not acutely distressed, she is awake, alert and oriented. SKIN: Erythema of the skin on the face, dryness of the skin on the face. HEAD: Normocephalic. EYES: No scleral icterus. No injection or drainage. NECK: Supple, trachea midline. No JVD or lymphadenopathy. LYMPHATIC: No adenopathy. CARDIOVASCULAR: Regular rate and rhythm without murmurs. RESPIRATORY: Poor inspiratory effort, decreased bibasilar breath sounds, prolonged expiratory phase, left lower extremity air movement/air entry worse than right lower lobe.. GASTROINTESTINAL: Thin abdomen, soft, no obvious organ enlargement, positive bowel sounds. EXTREMITIES: No cyanosis, or edema. MUSCULOSKELETAL: Generally decreased muscle mass, tone and strength. NEUROLOGICAL: No obvious focal deficit. Awake, alert, and oriented x3. She has 4 x 5 strength of the lower extremities at the ankle, knee and at the hip. PSYCHIATRIC: Appropriate mood and affect; insight and judgment normal. Assessment/Plan - Plan Ms. Cross is an 77-year-old female who is well-known to me from my outpatient practice. 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 Between the spring 2012 and very recently she had been on various targeted agents for management of her EGFR positive disease. She progressed on Tagrisso and was initiated on treatment with Keytruda. Following that she was initiated on palliative systemic therapy with carboplatin and Abraxane about 3 weeks ago. 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 She presented to the hospital with complaints of confusion, weakness and failure to thrive. 1. Lower extremity weakness: MRI of the thoracic and lumbar spine reviewed, MRI of the brain reviewed as well. No evidence of cord compression or corda equina syndrome. She likely has deconditioning, I did perform an examination of the lower extremities, she has adequate movement of all the various muscle groups but is significantly deconditioned it appears. I requested physical therapy to evaluate the patient to help strengthen her lower extremity's. The patient explains to me that her ability to ambulate and care for herself is central to her decision-making process as to whether or not she wishes to pursue additional treatment. She tells me if she is able to regain some of her lower extremity motor strength she would be open to receiving additional systemic therapy. However if she remains bedbound and requires assistance with all activities of daily living she would prefer to transition to hospice. 2. Follow-up MRI of the brain shows stable disease. 3. Hospice consult was placed primarily because the patient wished to discuss the services hospice can provide. She is not at this time willing to commit to hospice but would like to meet with him regardless.
[2018-01-30] MEDS: Senna/Docusate Sodium 8.6/50 MG Tablet PO SCH ×2 (09:23→20:16)
[2018-01-30] MEDS: Potassium Phosphate 500 MG Soluble Tablet PO SCH ×2 (09:23→20:15)
--- NOTE | 2018-01-30 12:52 | MB ---
cc: Wild Alston MD DATE: 01/29/2018 REASON FOR CONSULTATION: Bilateral leg weakness,. HISTORY OF PRESENT ILLNESS: This is a 77-year-old female with past medical history of with past medical history of metastatic lung cancer with YARD JACKER and bone metastasis, history of breast cancer, history of breast cancer who was brought to the [facility] by family because of worsening weakness and confusion. The wood gang sawyer is her ex- and the patient's niece. During the encounter the patient's niece and a friend were at the bedside. The patient states that she has been having weakness over the past 2 months. However, over the past 2 weeks there has been a progressive decline in function due to the lower extremity weakness, left leg greater than the right leg. The patient states that this heaviness is more bothersome; however, weakness is limiting walking ability. She is undergoing chemotherapy with Dr. Livingston and status post radiation by Dr. Calle. This is through the lumbar spine. REVIEW OF SYSTEMS: A 12-point review of systems is negative is negative except for what is stated in the HPI. PAST MEDICAL HISTORY: Adenocarcinoma of the lung, stage IV, bilateral cataracts, bone metastasis, brain metastasis and history of breast cancer. PAST SURGICAL HISTORY: Lumpectomy, status post breast biopsy. FAMILY HISTORY: Father with carcinoma of the lung. SOCIAL HISTORY: Former smoker, never alcohol. ALLERGIES: No drug abuse. MEDICATIONS: 1. Oxycodone. 2. Acetaminophen. 3. Percocet. 4. Sodium chloride. PHYSICAL EXAMINATION: GENERAL: The patient is awake and cooperative, well groomed, mild gastritis and anxiety. HEENT: Atraumatic, normocephalic, intact hearing, intact vision. CARDIOVASCULAR: Regular rate and rhythm. No murmurs. RESPIRATORY: Clear to auscultation. No wheezes. GASTROINTESTINAL: Soft abdomen. Nontender, nondistended. MUSCULOSKELETAL: No clubbing, cyanosis or edema. No obvious deformities. NEUROLOGIC: Awake, alert, oriented to time, person and place. No dysarthria. Cranial nerves 2-12 are grossly intact. Upper extremities are normal, 5/5. No abnormal movements, intact cerebellar function. Lower extremities: Right lower extremity, hip flexion 5-/5; knee extension 5-/5; foot extension 4-/5; plantar flexion 4-/5. Left lower extremity, hip flexion 4-/5; knee extension 4-/5; foot extension 4-/5. Foot plantar flexion 4-/5. Intact sensation throughout. Reflexes bilaterally symmetrical, upper extremity; and lower extremity bilateral knees 1+; bilateral ankles 3+, 4+ with ankle clonus bilateral, plantars bilateral upgoing. LABORATORY DATA: White blood cells 1.9, hemoglobin 7.8, MCV 97. Sodium 139, potassium 2.9/severe hypokalemia, magnesium 1.5, phosphorus 1.7, hypophosphatemia. Total protein 4.7, low. DIAGNOSTIC TESTS: - Head MRI continues to reveal tiny area of enhancement involving the anterior left insular cortex, which is actually smaller in size. Suspect most likely a blood vessel. No definite enhancing mass occupying lesion seen to indicate brain metastatic disease. Stable bilateral cortical atrophy. - Lumbar spine MRI compared to November. No significant changes of the overall appearance of the lumbar spine. There continues to be evidence of neoplastic disease of bone destruction involving L2 vertebral body with extension of bony neoplastic disease posteriorly by about 7 mm creating mild to moderate focal spinal canal stenosis. There continues to be focal severe spinal canal stenosis at the L4-5 from grade 1 anterior spondylolisthesis of L4-L5, diffuse disk bulging facet arthritis and hypertrophy ligamentum flavum. This is not significantly changed. Thoracic spine MRI stable. Followup MRI, specifically no evidence of any focal or new bone metastasis involving the thoracic spine. ASSESSMENT AND PLAN: 1. 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 2. L4-L5 spondylolisthesis, spinal canal stenosis with bulging. 3. Encephalopathy, resolved. 4. Metastatic lung disease. 5. Pancytopenia. 6. Severe hypokalemia. 7. Hypophosphatemia. - Neuro checks every 4 hourly. - Continue supportive medical therapy. - I discussed the case with the patient and family members at the bedside and I informed them that there is written goal for neurologic intervention at this time and recommended to continue radiation therapy and follow recommendations by oncologist and may need further to take an opinion of neurosurgery. - PT, OT recommendations are appreciated. - Replenish electrolyte derangement. - Deep venous thrombosis prophylaxis. - Gastrointestinal prophylaxis. Thank you for the opportunity to participate in the care of your patient. Please call for questions. MD JAKE Dangelo/sj , 08:57 PM , 09:13 PM [facility]
--- NOTE | 2018-01-30 14:34 | P.PNIM ---
Subjective Interval history: The pt was having a meeting with hospice. Her family was at the bedside. The pt was considering her options. She wants to walk again and be as functional as possible. She talked with her oncologist. Physical Exam Vital signs: Vital Signs 01/29/18 16:00 01/29/18 16:11 01/29/18 17:37 Temperature 101 F H 101.3 F H Pulse Rate 101 H Respiratory Rate Blood Pressure Pulse Oximetry 01/29/18 20:09 01/29/18 20:50 01/30/18 00:01 Temperature 99.1 F Pulse Rate 91 H 94 H 79 Respiratory Rate 16 Blood Pressure 102/53 L Pulse Oximetry 97 01/30/18 00:12 01/30/18 04:00 01/30/18 04:06 Temperature 98.8 F 99.8 F H Pulse Rate 92 H 104 H 110 H Respiratory Rate 18 16 Blood Pressure 125/72 142/75 H Pulse Oximetry 99 95 01/30/18 07:31 01/30/18 09:13 01/30/18 13:03 Temperature 99.7 F H 98.4 F Pulse Rate 101 H 102 H 105 H Respiratory Rate 16 16 Blood Pressure 113/72 121/65 Pulse Oximetry 99 98 Intake & Output 01/29/18 01/30/18 01/30/18 18:59 06:59 18:59 Intake Total 1258.5 / 1258.5 1660 / 1660 1100 / 1100 Output Total 250 / 250 Balance 1258.5 / 1258.5 1410 / 1410 1100 / 1100 Weight 48.7 kg Intake: IV 1258.5 / 1258.5 1220 / 1220 1100 / 1100 D5W/Normal Saline Inj 1,000 ML 700 / 700 @ 100 mls/hr IV.CONT .Q10H JEREMÍAS Rx#:[id number] D5W/NS + KCL 20 mEq Inj 1,000 1000 / 1000 1000 / 1000 ML @ 100 mls/hr IV.CONT .Q10H JEREMÍAS Rx#:[id number] Zosyn 4.5 GM Premix 4.5 gm In 200 / 200 220 / 220 100 / 100 100 ml @ 200 mls/hr IV.SIG Q6H JEREMÍAS Rx#:[id number] KCl 40 mEq Premix Inj 40 meq In 100 / 100 100 ml @ 25 mls/hr IV.SIG ONCE ONE Rx#:[id number] Vancomycin Inj 850 MG In NS Inj 258.5 / 258.5 250 ML @ 250 mls/hr IV.SIG Q18H JEREMÍAS Rx#:[id number] Oral 440 / 440 Output: Urine 250 / 250 Other: # Incontinent Voids 1 Date of Last Bowel Movement 01/28/18 01/29/18 Narrative: GENERAL: Elderly female in no acute distress. SKIN: Focused skin assessment warm and dry. HEENT: PERRLA, EOMI. No scleral icterus or conjunctival pallor. No lid lag or facial droop. CARDIOVASCULAR: Regular rate and rhythm. No obvious murmurs to auscultation. No chest tenderness to palpation. RESPIRATORY: No obvious rhonchi or wheezing. Clear to auscultation. Breath sounds equal bilaterally. GASTROINTESTINAL: Abdomen soft, non-tender, nondistended. BS normal. MUSCULOSKELETAL: Extremities without clubbing, cyanosis, or edema. No obvious deformities. NEUROLOGICAL: Moving both upper and lower extremities spontaneously. LLE with 4/ 5 strength, RLE with 5/5 strength. LEs with weakness in dorsiflexion. Sensation intact. - Urinary Catheter Management Straight Cath placed during this visit: yes, but has since been removed by the nurse Reason for continuing: Not indwelling catheter Insertion date: 01/27/18 Insertion time: 17:29 Removal date: 01/27/18 Results - Labs CBC & Chem 7: 01/29/18 06:51 01/29/18 18:46 Laboratory Results - last 24 hr 01/29/18 01/29/18 06:51 18:46 Sodium 139 Potassium Cancelled 3.2 L Chloride 110 H Carbon Dioxide 20.0 L Anion Gap 9 BUN 7 Creatinine 0.83 Estimated GFR 67 L Random Glucose 140 H Calcium 7.0 L* Prot Corrected Calcium 8.4 L Total Protein 4.6 L Vitamin B12 779 Microbiology 01/28/18 17:37 Blood - Peripheral Aerobic Blood Culture - Preliminary No growth in 2 days 01/28/18 17:37 Blood - Peripheral Anaerobic Blood Culture - Preliminary No growth in 2 days 01/28/18 16:25 Blood - Peripheral Aerobic Blood Culture - Preliminary No growth in 2 days 01/28/18 16:25 Blood - Peripheral Anaerobic Blood Culture - Preliminary No growth in 2 days Assessment and Plan - Assessment (1) Encephalopathy Code(s): G93.40 - Encephalopathy, unspecified Status: Acute (2) PNA (pneumonia) Code(s): J18.9 - Pneumonia, unspecified organism Status: Acute (3) Metastatic lung carcinoma Code(s): C78.00 - Secondary malignant neoplasm of unspecified lung Status: Acute (4) Pancytopenia Code(s): D61.818 - Other pancytopenia Status: Acute (5) Weakness Code(s): R53.1 - Weakness Status: Acute (6) Hypokalemia Code(s): E87.6 - Hypokalemia Status: Acute - Plan Encephalopathy/ Weakness Progressive confusion/forgetfulness per family. The pt has also lost the ability to walk over the past few weeks. Exam with LLE weakness and bilateral weakness in dorsiflexion. CT Head w/ no acute findings. U/a currently normal. Progressive lower extremity weakness per family, h/o L-Spine lesion w/ previous radiation by Dr. Calle. MRI of the brain is stable. 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 Neurology consult appreciated. -PT/OT. -Neuro Checks. -antibiotics. -hospice consult appreciated. -case management consult for [facility]. PNA CXR w/ left base consolidation, s/p Rocephin/Zithro. Still with fevers. -will continue w/ IV Abx. Change to vancomycin and Zosyn to cover for HCAP. -DuoNeb and oxygen prn. -follow culture data. Metastatic lung CA/ Pancytopenia H/o lung cancer w/ [employer]ORATION DESIGN[employer]/Bone Mets, s/p Radiation, currently on Chemotherapy, follows w/ Dr. Livingston. Oncology consult appreciated. -follow up with oncology. -follow CBC and transfuse as needed. -hospice consult. Hypokalemia Severe. -replete IV and follow BMP. Currently on IVFs with KCl. -ADAT. -telemetry. Malnutrition/ Hypoglycemia The pt has decreased PO intake. -ADAT. -dietary consult. -D5NS. DVT Prophylaxis: SCD/Teds
[2018-01-30] MEDS: Morphine Sulfate Inj 2 MG/ML Vial IV.PUSH PRN (16:10)
[2018-01-30 16:31] LABS: Baso % (Auto) 0.6 % (0.0-2.0); Eos % (Auto) 0.2 % (0.0-4.0); Hematocrit 21.2 % (35.0-46.0); Hemoglobin 7.3 gm/dL (11.6-15.3); Lymph # (Auto) 1.3 th/mm3 (1.0-4.8); Lymph % (Auto) 37.2 % (9.0-44.0); Mean Corpuscular HGB Conc 34.2 % (32.0-36.0); Mean Corpuscular Hemoglobin 33.4 pg (27.0-34.0); Mean Corpuscular Volume 97.8 fL (80.0-100.0); Mean Platelet Volume 8.6 fL (7.0-11.0); Mono # (Auto) 0.4 th/mm3 (0.0-0.9); Mono % (Auto) 11.7 % (0.0-8.0); Neut # (Auto) 1.7 th/mm3 (1.8-7.7); Neut % (Auto) 50.3 % (16.0-70.0); Platelet Count 68 th/mm3 (150-450); Red Blood Count 2.17 mil/mm3 (4.00-5.30); Red Cell Distribution Width 14.7 % (11.6-17.2); White Blood Count 3.4 th/mm3 (4.0-11.0)
[2018-01-30 17:10] LABS: Calcium 6.9 mg/dL (8.5-10.1); Carbon Dioxide 20.9 meq/L (21.0-32.0); Potassium 3.4 meq/L (3.5-5.1)
[2018-01-30 17:29] LABS: Lymphocytes 18 % (9-44); Monocytes 8 % (0-8); Tallied Nucleated RBC 1 (0-0)
[2018-01-30 17:30] LABS: Ovalocytes 1+; Platelet Morphology Normal (Normal); Spherocytes 1+
[2018-01-30 17:59] LABS: Total Protein 4.4 g/dL (6.4-8.2)
[2018-01-30] MEDS: Acetaminophen 325 MG Tablet PO PRN (20:14)
[2018-01-30] MEDS ORDERED: Pharmacy Ordered Lab Info OTHER ONE (22:45)
[2018-01-31] MEDS: Vancomycin Inj 850 MG in Sodium Chlor 0.9% Inj 250 ML IV.SIG SCH (00:01)
[2018-01-31] MEDS: KCL 20 mEq/D5W/NaCl 0.9% Inj 1,000 ML IV.CONT SCH ×2 (03:35→14:01)
[2018-01-31] MEDS: oxyCODONE/Acetaminophen 10/325 Tablet PO PRN ×4 (03:49→20:01)
[2018-01-31] MEDS: Piperacil/Tazo 4.5 GM Premix 4.5 GM/100 ML BAG IV.SIG SCH ×4 (04:10→22:25)
[2018-01-31 05:41] LABS: Hematocrit 21.9 % (35.0-46.0); Hemoglobin 7.8 gm/dL (11.6-15.3); Mean Corpuscular HGB Conc 35.5 % (32.0-36.0); Mean Corpuscular Hemoglobin 36.6 pg (27.0-34.0); Mean Corpuscular Volume 103.1 fL (80.0-100.0); Mean Platelet Volume 8.2 fL (7.0-11.0); Platelet Count 76 th/mm3 (150-450); Red Blood Count 2.13 mil/mm3 (4.00-5.30); Red Cell Distribution Width 15.4 % (11.6-17.2); White Blood Count 4.3 th/mm3 (4.0-11.0)
[2018-01-31 06:09] LABS: Anion Gap 11 meq/L (5-15); Blood Urea Nitrogen 6 mg/dL (7-18); Calcium 7.3 mg/dL (8.5-10.1); Carbon Dioxide 19.3 meq/L (21.0-32.0); Chloride 111 meq/L (98-107); Glomerular Filtration Rate Greater Than 89 mL/min (>89); Glucose,Random 100 mg/dL (74-106); Magnesium 1.4 mg/dL (1.5-2.5); Phosphorus 2.2 mg/dL (2.5-4.9); Potassium 3.8 meq/L (3.5-5.1); Sodium 141 meq/L (136-145)
[2018-01-31 06:27] LABS: Total Protein 4.7 g/dL (6.4-8.2)
[2018-01-31 07:57] LABS: Lymphocytes 28 % (9-44); Monocytes 4 % (0-8); Platelet Morphology Normal (Normal); Tallied Nucleated RBC 3 (0-0)
[2018-01-31] MEDS: Senna/Docusate Sodium 8.6/50 MG Tablet PO SCH ×2 (08:54→20:02)
[2018-01-31] MEDS: Potassium Phosphate 500 MG Soluble Tablet PO SCH ×2 (08:57→20:02)
--- NOTE | 2018-01-31 10:09 | P.PNONC ---
Subjective Interval history: Patient seen and examined, vital signs, labs, medications and events overnight reviewed. Subjectively; patient reports having had some nausea after receiving a morphine infusion yesterday. She also reports having been generally weak, she tells me she did work with physical therapy but did not get up out of bed, she did not have them work with her lower extremities. She tells me hospital food has not tasted good to her, she is requested her sister and niece to bring in smoothies and food from outside. Even when they do bring in food from outside she has only eaten small amounts. Her major pain is in her mid back along the lower left chest wall posteriorly, she also reports hiccups. Objective Vital Signs/Intake & Output: Vital Signs 01/30/18 12:04 01/30/18 13:03 01/30/18 16:00 Temperature 98.4 F Pulse Rate 96 H 105 H 91 H Respiratory Rate 16 Blood Pressure 121/65 Pulse Oximetry 98 01/30/18 16:16 01/30/18 17:19 01/30/18 17:21 Temperature 99.6 F Pulse Rate 95 H Respiratory Rate 18 18 Blood Pressure 134/74 Pulse Oximetry 97 97 01/30/18 20:04 01/30/18 20:06 01/30/18 23:02 Temperature 100.5 F H 99.3 F Pulse Rate 112 H 110 H 96 H Respiratory Rate 18 16 Blood Pressure 124/79 103/53 L Pulse Oximetry 93 L 96 01/31/18 00:04 01/31/18 03:45 01/31/18 04:01 Temperature 98.9 F Pulse Rate 91 H 95 H 104 H Respiratory Rate 20 Blood Pressure 146/84 H Pulse Oximetry 93 L 01/31/18 07:00 01/31/18 08:00 01/31/18 09:10 Temperature 98.3 F Pulse Rate 90 103 H Respiratory Rate 20 Blood Pressure 136/68 Pulse Oximetry 92 L 92 L Intake & Output 01/30/18 01/31/18 01/31/18 18:59 06:59 18:59 Intake Total 1320 / 1320 1840 / 1840 Output Total 200 / 200 300 / 300 Balance 1120 / 1120 1540 / 1540 Weight 52.2 kg Intake: IV 1200 / 1200 1480 / 1480 D5W/NS + KCL 20 mEq Inj 1,000 1000 / 1000 1000 / 1000 ML @ 100 mls/hr IV.CONT .Q10H JEREMÍAS Rx#:[id number] Zosyn 4.5 GM Premix 4.5 gm In 200 / 200 220 / 220 100 ml @ 200 mls/hr IV.SIG Q6H JEREMÍAS Rx#:[id number] Vancomycin Inj 850 MG In NS Inj 260 / 260 250 ML @ 250 mls/hr IV.SIG Q18H JEREMÍAS Rx#:[id number] Oral 120 / 120 360 / 360 Output: Urine 200 / 200 300 / 300 Other: # Incontinent Voids 1 Date of Last Bowel Movement 01/29/18 01/29/18 Result Diagrams: 01/31/18 04:05 01/31/18 04:05 Laboratory Results: Laboratory Results - last 24 hr 01/30/18 01/30/18 01/30/18 15:53 15:53 22:55 WBC 3.4 L RBC 2.17 L Hgb 7.3 L Hct 21.2 L MCV 97.8 MCH 33.4 MCHC 34.2 RDW 14.7 Plt Count 68 L MPV 8.6 Prelim Diff (Auto) Slide review pending Neut % (Auto) 50.3 Lymph % (Auto) 37.2 [place] % (Auto) 11.7 H Eos % (Auto) 0.2 Baso % (Auto) 0.6 Neut # (Auto) 1.7 L Lymph # (Auto) 1.3 [place] # (Auto) 0.4 Eos # (Auto) 0.0 Baso # (Auto) 0.0 WBC Differential Manual diff final Seg Neuts % (Manual) 57 Band Neuts % (Manual) 17 H Lymphocytes % (Manual) 18 Monocytes % (Manual) 8 Abs Neuts (Manual) 2.5 Nucleated RBCs/100 WBC 1 H Differential Comment . Platelet Estimate Low L Platelet Morphology Normal Spherocytes 1+ H Ovalocytes 1+ H Sodium 140 Potassium 3.4 L Chloride 111 H Carbon Dioxide 20.9 L Anion Gap 8 BUN 6 L Creatinine 0.67 Estimated GFR 86 L Random Glucose 143 H Calcium 6.9 L* Prot Corrected Calcium 8.4 L Phosphorus Magnesium Total Protein 4.4 L Vancomycin Trough 10.2 H 01/31/18 01/31/18 04:05 04:05 WBC 4.3 RBC 2.13 L Hgb 7.8 L Hct 21.9 L MCV 103.1 H D MCH 36.6 H MCHC 35.5 RDW 15.4 Plt Count 76 L MPV 8.2 Prelim Diff (Auto) Manual diff required Neut % (Auto) Lymph % (Auto) [place] % (Auto) Eos % (Auto) Baso % (Auto) Neut # (Auto) Lymph # (Auto) [place] # (Auto) Eos # (Auto) Baso # (Auto) WBC Differential Manual diff final Seg Neuts % (Manual) 42 Band Neuts % (Manual) 26 H Lymphocytes % (Manual) 28 Monocytes % (Manual) 4 Abs Neuts (Manual) 2.9 Nucleated RBCs/100 WBC 3 H Differential Comment . Platelet Estimate Low L Platelet Morphology Normal Spherocytes Ovalocytes Sodium 141 Potassium 3.8 Chloride 111 H Carbon Dioxide 19.3 L Anion Gap 11 BUN 6 L Creatinine 0.64 Estimated GFR Greater than 89 Random Glucose 100 Calcium 7.3 L* Prot Corrected Calcium 8.7 Phosphorus 2.2 L Magnesium 1.4 L Total Protein 4.7 L Vancomycin Trough Culture Results: Microbiology 01/28/18 17:37 Aerobic Blood Culture - Preliminary Blood - Peripheral No growth in 2 days Anaerobic Blood Culture - Preliminary No growth in 2 days 01/28/18 16:25 Aerobic Blood Culture - Preliminary Blood - Peripheral No growth in 2 days Anaerobic Blood Culture - Preliminary No growth in 2 days Medications: Active Medications Generic Name Dose Route Start Last Admin Trade Name Freq PRN Reason Stop Dose Admin Acetaminophen 650 mg 01/27/18 19:51 01/30/18 20:14 Tylenol PO 325 mg Q4H PRN Administration Temp > 100.4 Piperacillin/Tazobactam/Dextrose 4.5 gm in 100 mls @ 200 mls/hr 01/28/18 16: 00 01/31/18 09:01 Zosyn 4.5 Gm Premix IV.SIG 200 mls/hr Q6H JEREMÍAS Administration Potassium Chloride/Dextrose/Sod Cl 1,000 mls @ 100 mls/hr 01/29/18 12:00 01/10 03:35 D5w/Ns + Kcl 20 Meq Inj IV.CONT Not Given .Q10H JEREMÍAS Morphine Sulfate 2 mg 01/30/18 13:00 01/30/18 16:10 Morphine Inj IV.PUSH 2 mg Q4H PRN Administration PAIN 6-10;IF UNABLE TO TAKE PO Ondansetron HCl 4 mg 01/27/18 19:51 01/30/18 17:17 Zofran Inj IV.PUSH 4 mg Q6H PRN Administration NAUSEA OR VOMITING Oxycodone/Acetaminophen 1 tab 01/27/18 18:07 01/31/18 09:10 Percocet 10/325 Mg PO 1 tab Q4H PRN Administration Non-Acute Pain Potassium Phosphate 500 mg 01/29/18 11:00 01/31/18 08:57 K-Phos Original PO 500 mg BID JEREMÍAS Administration Senna/Docusate Sodium 1 tab 01/27/18 21:00 01/31/18 08:54 Concha-Colace PO Not Given BID JEREMÍAS Sodium Chloride 2 ml 01/27/18 16:06 01/27/18 18:21 Ns Flush IV.FLUSH 2 ml PRN PRN Administration FLUSH AFTER USING IV ACCESS Objective Remarks: GENERAL: Elderly lady, laying in bed, not acutely distressed, she is awake, alert and oriented. SKIN: Erythema of the skin on the face, dryness of the skin on the face. HEAD: Normocephalic. EYES: No scleral icterus. No injection or drainage. NECK: Supple, trachea midline. No JVD or lymphadenopathy. LYMPHATIC: No adenopathy. CARDIOVASCULAR: Regular rate and rhythm without murmurs. RESPIRATORY: Poor inspiratory effort, decreased bibasilar breath sounds, prolonged expiratory phase, left lower extremity air movement/air entry worse than right lower lobe.. GASTROINTESTINAL: Thin abdomen, soft, no obvious organ enlargement, positive bowel sounds. EXTREMITIES: No cyanosis, or edema. MUSCULOSKELETAL: Generally decreased muscle mass, tone and strength. NEUROLOGICAL: No obvious focal deficit. Awake, alert, and oriented x3. She has 4 x 5 strength of the lower extremities at the ankle, knee and at the hip. PSYCHIATRIC: Appropriate mood and affect; insight and judgment normal. Assessment/Plan - Plan Ms. Cross is an 77-year-old female who is well-known to me from my outpatient practice. 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 Between the spring 2012 and very recently she had been on various targeted agents for management of her EGFR positive disease. She progressed on Tagrisso and was initiated on treatment with Keytruda. Following that she was initiated on palliative systemic therapy with carboplatin and Abraxane about 3 weeks ago. 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 She presented to the hospital with complaints of confusion, weakness and failure to thrive. 1. Metastatic lung carcinoma: She is currently extremely frail, I explained to the patient that she will need to have significant improvement in her performance status and physical endurance before she is eligible for any form of treatment. I explained to her that she must work with physical therapy and have them get her up out of bed to help her regain some of her lower extremity weakness and loss of confidence when it comes to ambulation. The patient did meet with hospice yesterday, she remains uncertain about how she wishes to move forward. I explained to the patient that unless she has significant recovery as far as performance status is concerned she will be a poor candidate for additional cytotoxic chemotherapy. 2. Follow-up MRI of the brain shows stable disease. 3. Appreciate hospice intake staff for coming in to talk to the patient about hospice services.
[2018-01-31] MEDS: Vancomycin Inj 750 MG in Sodium Chlor 0.9% Inj 250 ML IV.SIG SCH (12:11)
--- NOTE | 2018-01-31 13:19 | P.PNIM ---
Subjective Interval history: The patient was resting in bed comfortably. She stated that her appetite was diminished. Her family was at the bedside. The patient requested a regular Melendrez catheter. Discussed with nursing. Physical Exam Vital signs: Vital Signs 01/30/18 16:00 01/30/18 16:16 01/30/18 17:19 Temperature 99.6 F Pulse Rate 91 H 95 H Respiratory Rate 18 Blood Pressure 134/74 Pulse Oximetry 97 97 01/30/18 17:21 01/30/18 20:04 01/30/18 20:06 Temperature 100.5 F H Pulse Rate 112 H 110 H Respiratory Rate 18 18 Blood Pressure 124/79 Pulse Oximetry 93 L 01/30/18 23:02 01/31/18 00:04 01/31/18 03:45 Temperature 99.3 F 98.9 F Pulse Rate 96 H 91 H 95 H Respiratory Rate 16 20 Blood Pressure 103/53 L 146/84 H Pulse Oximetry 96 93 L 01/31/18 04:01 01/31/18 07:00 01/31/18 08:00 Temperature 98.3 F Pulse Rate 104 H 90 103 H Respiratory Rate 20 Blood Pressure 136/68 Pulse Oximetry 92 L 01/31/18 09:10 01/31/18 11:00 01/31/18 12:05 Temperature 98.9 F Pulse Rate 119 H 114 H Respiratory Rate Blood Pressure 114/69 Pulse Oximetry 92 L 93 L Intake & Output 01/30/18 01/31/18 01/31/18 18:59 06:59 18:59 Intake Total 1320 / 1320 1840 / 1840 110 / 110 Output Total 200 / 200 300 / 300 Balance 1120 / 1120 1540 / 1540 110 / 110 Weight 52.2 kg Intake: IV 1200 / 1200 1480 / 1480 110 / 110 D5W/NS + KCL 20 mEq Inj 1,000 1000 / 1000 1000 / 1000 ML @ 100 mls/hr IV.CONT .Q10H JEREMÍAS Rx#:[id number] Zosyn 4.5 GM Premix 4.5 gm In 200 / 200 220 / 220 110 / 110 100 ml @ 200 mls/hr IV.SIG Q6H JEREMÍAS Rx#:[id number] Vancomycin Inj 850 MG In NS Inj 260 / 260 250 ML @ 250 mls/hr IV.SIG Q18H JEREMÍAS Rx#:[id number] Oral 120 / 120 360 / 360 Output: Urine 200 / 200 300 / 300 Other: # Incontinent Voids 1 Date of Last Bowel Movement 01/29/18 01/29/18 Narrative: GENERAL: Elderly female in no acute distress. SKIN: Focused skin assessment warm and dry. HEENT: PERRLA, EOMI. No scleral icterus or conjunctival pallor. No lid lag or facial droop. CARDIOVASCULAR: Tachycardic. No obvious murmurs to auscultation. No chest tenderness to palpation. RESPIRATORY: No obvious rhonchi or wheezing. Clear to auscultation. Breath sounds equal bilaterally. GASTROINTESTINAL: Abdomen soft, non-tender, nondistended. BS normal. MUSCULOSKELETAL: Extremities without clubbing, cyanosis, or edema. No obvious deformities. NEUROLOGICAL: Moving both upper and lower extremities spontaneously. LLE with 4/ 5 strength, RLE with 5/5 strength. LEs with weakness in dorsiflexion. Sensation intact. - Urinary Catheter Management Straight Cath placed during this visit: yes, but has since been removed by the nurse Reason for continuing: Not indwelling catheter Insertion date: 01/27/18 Insertion time: 17:29 Removal date: 01/27/18 Results - Labs CBC & Chem 7: 01/31/18 04:05 01/31/18 04:05 Laboratory Results - last 24 hr 01/30/18 01/30/18 01/30/18 15:53 15:53 22:55 WBC 3.4 L RBC 2.17 L Hgb 7.3 L Hct 21.2 L MCV 97.8 MCH 33.4 MCHC 34.2 RDW 14.7 Plt Count 68 L MPV 8.6 Prelim Diff (Auto) Slide review pending Neut % (Auto) 50.3 Lymph % (Auto) 37.2 [place] % (Auto) 11.7 H Eos % (Auto) 0.2 Baso % (Auto) 0.6 Neut # (Auto) 1.7 L Lymph # (Auto) 1.3 [place] # (Auto) 0.4 Eos # (Auto) 0.0 Baso # (Auto) 0.0 WBC Differential Manual diff final Seg Neuts % (Manual) 57 Band Neuts % (Manual) 17 H Lymphocytes % (Manual) 18 Monocytes % (Manual) 8 Abs Neuts (Manual) 2.5 Nucleated RBCs/100 WBC 1 H Differential Comment . Platelet Estimate Low L Platelet Morphology Normal Spherocytes 1+ H Ovalocytes 1+ H Sodium 140 Potassium 3.4 L Chloride 111 H Carbon Dioxide 20.9 L Anion Gap 8 BUN 6 L Creatinine 0.67 Estimated GFR 86 L Random Glucose 143 H Calcium 6.9 L* Prot Corrected Calcium 8.4 L Phosphorus Magnesium Total Protein 4.4 L Vancomycin Trough 10.2 H 01/31/18 01/31/18 04:05 04:05 WBC 4.3 RBC 2.13 L Hgb 7.8 L Hct 21.9 L MCV 103.1 H D MCH 36.6 H MCHC 35.5 RDW 15.4 Plt Count 76 L MPV 8.2 Prelim Diff (Auto) Manual diff required Neut % (Auto) Lymph % (Auto) [place] % (Auto) Eos % (Auto) Baso % (Auto) Neut # (Auto) Lymph # (Auto) [place] # (Auto) Eos # (Auto) Baso # (Auto) WBC Differential Manual diff final Seg Neuts % (Manual) 42 Band Neuts % (Manual) 26 H Lymphocytes % (Manual) 28 Monocytes % (Manual) 4 Abs Neuts (Manual) 2.9 Nucleated RBCs/100 WBC 3 H Differential Comment . Platelet Estimate Low L Platelet Morphology Normal Spherocytes Ovalocytes Sodium 141 Potassium 3.8 Chloride 111 H Carbon Dioxide 19.3 L Anion Gap 11 BUN 6 L Creatinine 0.64 Estimated GFR Greater than 89 Random Glucose 100 Calcium 7.3 L* Prot Corrected Calcium 8.7 Phosphorus 2.2 L Magnesium 1.4 L Total Protein 4.7 L Vancomycin Trough Microbiology 01/28/18 17:37 Blood - Peripheral Aerobic Blood Culture - Preliminary No growth in 3 days 01/28/18 17:37 Blood - Peripheral Anaerobic Blood Culture - Preliminary No growth in 3 days 01/28/18 16:25 Blood - Peripheral Aerobic Blood Culture - Preliminary No growth in 3 days 01/28/18 16:25 Blood - Peripheral Anaerobic Blood Culture - Preliminary No growth in 3 days Assessment and Plan - Assessment (1) Encephalopathy Code(s): G93.40 - Encephalopathy, unspecified Status: Acute (2) PNA (pneumonia) Code(s): J18.9 - Pneumonia, unspecified organism Status: Acute (3) Metastatic lung carcinoma Code(s): C78.00 - Secondary malignant neoplasm of unspecified lung Status: Acute (4) Pancytopenia Code(s): D61.818 - Other pancytopenia Status: Acute (5) Weakness Code(s): R53.1 - Weakness Status: Acute (6) Hypokalemia Code(s): E87.6 - Hypokalemia Status: Acute - Plan Encephalopathy/ Weakness Progressive confusion/forgetfulness per family. The pt has also lost the ability to walk over the past few weeks. Exam with LLE weakness and bilateral weakness in dorsiflexion. CT Head w/ no acute findings. U/a currently normal. Progressive lower extremity weakness per family, h/o L-Spine lesion w/ previous radiation by Dr. Calle. MRI of the brain is stable. 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 Neurology consult appreciated. -PT/OT. -Neuro Checks. -antibiotics. -case management consult for [facility]. PNA CXR w/ left base consolidation, s/p Rocephin/Zithro. Still with fevers. -will continue w/ IV Abx. Changed to vancomycin and Zosyn to cover for HCAP. -DuoNeb and oxygen prn. -follow culture data. NGTD. Metastatic lung CA/ Pancytopenia H/o lung cancer w/ [employer]/Bone Mets, s/p Radiation, currently on Chemotherapy, follows w/ Dr. Livingston. Oncology consult appreciated. -follow up with oncology. -follow CBC and transfuse as needed. -hospice consult appreciated. Pt and family not ready for hospice at this time. Melendrez catheter placed for comfort per patient request in the setting of possible hospice care. Hypokalemia/ Hypophosphatemia/ Hypomagnesemia Improving. -Currently on IVFs with KCl. -Mg sulfate IV. -PO K-Phos started. -ADAT. -telemetry. -follow BMP. Malnutrition/ Hypoglycemia The pt has decreased PO intake. -ADAT. -dietary consult. -on D5NS. DVT Prophylaxis: SCD/Teds Discharge Planning: Hopefully home with [facility] when patient is strong enough. Considering hospice as well.
[2018-01-31] MEDS: Mag Sulf 1 gm/100 ml Premix 100 ML IV.SIG SCH ×2 (14:00→15:09)
[2018-01-31] MEDS: Acetaminophen 325 MG Tablet PO PRN (15:00)
--- NOTE | 2018-01-31 15:34 | XR ---
EXAM DATE: 01/31/2018 3:11 PM EDT AGE/SEX: 77 years / Female INDICATIONS: Short of breath. CLINICAL DATA: This is the patient's initial encounter. Patient reports that signs and symptoms have been present for 1 day and indicates a pain score of 0/10. MEDICAL/SURGICAL HISTORY: Carcinoma, lung. . Infusaport. COMPARISON: [facility], CHEST 1V SINGLE AP, 01/27/2018. . FINDINGS: Today's exam is compared to the prior study. There is a new patient infiltrate in the right lung base compared to the prior exam. There continues to be parenchymal consolidation in the left upper lung a nd left lung base without significant change compared to the prior exam. There is a right-sided centr al line in place. There is no pneumothorax. The heart size is stable. The bony structures are stable. CONCLUSION: 1. New patchy infiltrate in the right lower lung. 2. Stable parenchymal infiltrates in the left apex and left lower lung. Electronically signed by: Howard Kline MD 01/31/2018 3:33 PM EDT
[2018-01-31 16:00] LABS: Bacteria,Urine Rare /hpf; Bilirubin,Urine Negative (Negative); Clarity,Urine Cloudy (Clear); Color,Urine Yellow (Yellw/Straw); Glucose,Urine (UA) Negative (Negative); Leukocyte Esterase,Urine Negative (Negative); Mucus,Urine Few /lpf (Occasional); Nitrite,Urine Negative (Negative); Specific Gravity,Urine 1.017 (1.002-1.035); Squamous Epithelial Cell,Urine <1 /hpf (0-5)
[2018-01-31] MEDS ORDERED: Sodium Chloride 0.9% 2 ML Flush PRN IV.FLUSH (16:14)
[2018-01-31] MEDS ORDERED: MethylPREDNISolone Sod Succinate Inj 125 MG/2 ML Vial IV.PUSH ONE (16:15)
[2018-01-31] MEDS ORDERED: Sodium Chlor 0.9% Inj 500 ML IV.SIG ONE (17:25)
[2018-01-31] MEDS: Sodium Chloride 0.9% 2 ML Flush BID IV.FLUSH SCH (20:03)
[2018-01-31] MEDS: MethylPREDNISolone Sod Succinate Inj 40 MG/ML Vial IV.PUSH SCH (22:20)
[2018-02-01] MEDS: Vancomycin Inj 750 MG in Sodium Chlor 0.9% Inj 250 ML IV.SIG SCH ×2 (00:06→11:22)
[2018-02-01] MEDS: Piperacil/Tazo 4.5 GM Premix 4.5 GM/100 ML BAG IV.SIG SCH ×3 (04:46→16:41)
[2018-02-01] MEDS: oxyCODONE/Acetaminophen 10/325 Tablet PO PRN ×3 (04:55→15:35)
[2018-02-01 05:44] LABS: Baso % (Auto) 0.2 % (0.0-2.0); Lymph # (Auto) 1.3 th/mm3 (1.0-4.8); Lymph % (Auto) 38.1 % (9.0-44.0); Mean Corpuscular HGB Conc 35.9 % (32.0-36.0); Mean Corpuscular Hemoglobin 35.9 pg (27.0-34.0); Mean Platelet Volume 8.4 fL (7.0-11.0); Mono # (Auto) 0.3 th/mm3 (0.0-0.9); Mono % (Auto) 7.7 % (0.0-8.0); Neut # (Auto) 1.9 th/mm3 (1.8-7.7); Platelet Count 74 th/mm3 (150-450); Red Blood Count 1.92 mil/mm3 (4.00-5.30); Red Cell Distribution Width 15.5 % (11.6-17.2); White Blood Count 3.5 th/mm3 (4.0-11.0)
[2018-02-01 06:04] LABS: Hematocrit 19.2 % (35.0-46.0); Hemoglobin 6.9 gm/dL (11.6-15.3)
[2018-02-01 06:06] LABS: Calcium 7.2 mg/dL (8.5-10.1); Carbon Dioxide 19.7 meq/L (21.0-32.0); Magnesium 2.1 mg/dL (1.5-2.5); Phosphorus 2.5 mg/dL (2.5-4.9); Potassium 3.2 meq/L (3.5-5.1)
[2018-02-01 06:19] LABS: Total Protein 4.6 g/dL (6.4-8.2)
[2018-02-01] MEDS: MethylPREDNISolone Sod Succinate Inj 40 MG/ML Vial IV.PUSH SCH ×3 (06:47→22:38)
[2018-02-01] MEDS ORDERED: Heparin Central Flush 100 UNIT/ML 5 ML Vial IV.FLUSH PRN ×2 (08:16)
[2018-02-01] MEDS ORDERED: Sodium Chlor 0.9% Inj 250 ML IV.SIG SCH (09:00)
[2018-02-01 09:18] LABS: Lymphocytes 23 % (9-44); Monocytes 9 % (0-8); Myelocytes 1 % (0-0); Platelet Morphology Normal (Normal)
[2018-02-01 09:19] LABS: Toxic Granulation 1+
[2018-02-01] MEDS: Senna/Docusate Sodium 8.6/50 MG Tablet PO SCH ×2 (09:37→22:37)
[2018-02-01] MEDS: Potassium Phosphate 500 MG Soluble Tablet PO SCH (09:37)
[2018-02-01] MEDS: Sodium Chloride 0.9% 2 ML Flush BID IV.FLUSH SCH (09:38)
--- NOTE | 2018-02-01 11:09 | ECG ---
Date Performed: 01/31/2018 Time Performed: 15:31:02 PTAGE: 77 years EKG: Sinus tachycardia. Lead(s) unsuitable for analysis: V5 Inferior and septal T wave changes a re nonspecific Borderline ECG NO PREVIOUS TRACING DOCTOR: Ken Spaulding Interpretating Date/Time 02/01/2018 11:08:06
--- NOTE | 2018-02-01 11:15 | P.PNIM ---
Subjective Interval history: Patient reports feeling tired today. Breathing is about the same today. Stable on nasal cannula. Hemoglobin down to 6.9. Physical Exam Vital signs: Vital Signs 01/31/18 12:05 01/31/18 14:54 01/31/18 15:00 Temperature 98.9 F 101.1 F H Pulse Rate 114 H 136 H 132 H Respiratory Rate 18 Blood Pressure 114/69 121/74 Pulse Oximetry 93 L 79 L 01/31/18 16:19 01/31/18 18:13 01/31/18 19:57 Temperature 98.9 F 98.6 F Pulse Rate 128 H 95 H 98 H Respiratory Rate 22 18 18 Blood Pressure 84/50 L 95/60 L 130/76 Pulse Oximetry 100 99 99 01/31/18 20:05 01/31/18 21:40 01/31/18 23:40 Temperature Pulse Rate 107 H 87 Respiratory Rate Blood Pressure Pulse Oximetry 98 02/01/18 00:02 02/01/18 04:00 02/01/18 04:05 Temperature 98.3 F 97.4 F L Pulse Rate 93 H 73 67 Respiratory Rate 18 16 Blood Pressure 112/60 136/84 Pulse Oximetry 98 100 02/01/18 07:42 02/01/18 09:35 02/01/18 11:01 Temperature 97.8 F 97.4 F L Pulse Rate 82 80 84 Respiratory Rate 20 16 Blood Pressure 138/74 138/74 Pulse Oximetry 98 98 Intake & Output 01/31/18 02/01/18 02/01/18 18:59 06:59 18:59 Intake Total 2667.5 / 2667.5 985 / 985 110 / 110 Output Total 600 / 600 725 / 725 Balance 2066.5 / 2066.5 260 / 260 110 / 110 Weight 52.3 kg Intake: IV 2066. / 2066.5 785 / 785 110 / 110 D5W/NS + KCL 20 mEq Inj 1,000 1000 / 1000 200 / 200 ML @ 100 mls/hr IV.CONT .Q10H [facility] Rx#:[id number] Magnesium Sulfate 1 gm/D5W 100 100 / 100 100 / 100 ml Premix 100 ML @ 100 mls/hr IV.SIG Q1H [facility] Rx#:[id number] Zosyn 4.5 GM Premix 4.5 gm In 210 / 210 220 / 220 110 / 110 100 ml @ 200 mls/hr IV.SIG Q6H [facility] Rx#:[id number] NS Inj 500 ML @ Wide Open IV. 500 / 500 SIG BOLUS ONE Rx#:[id number] Vancomycin Inj 750 MG In NS Inj 257.5 / 257.5 265 / 265 250 ML @ 250 mls/hr IV.SIG Q12H [facility] Rx#:[id number] Oral 600 / 600 200 / 200 Output: Urine 200 / 200 Urine Amount (Catheter) 400 / 400 725 / 725 Indwelling Urethral Catheter 400 / 400 725 / 725 Other: Date of Last Bowel Movement 01/29/18 Narrative: GENERAL: Elderly and frail female in no acute distress.. CARDIOVASCULAR: Normal rate and regular rhythm without murmurs, gallops, or rubs. RESPIRATORY: Good respiratory efforts. Breath sounds equal and clear to auscultation bilaterally. GASTROINTESTINAL: Abdomen soft, non-tender, non-distended. Normal active bowel sounds MUSCULOSKELETAL: Extremities without cyanosis, or edema. NEURO: Moving both upper and lower extremities spontaneously. LLE with 4/5 strength, RLE with 5/5 strength. LEs with weakness in dorsiflexion. Sensation intact. PSYCH: Appropriate mood and affect. - Urinary Catheter Management Straight Cath placed during this visit: yes, but has since been removed by the nurse Reason for continuing: Not indwelling catheter Insertion date: 01/27/18 Insertion time: 17:29 Removal date: 01/27/18 Indwelling Urethral Catheter Cath placed during this visit: yes Reason for continuing: Other continuation reason Insertion date: 01/31/18 Insertion time: 14:21 Results - Labs CBC & Chem 7: 02/01/18 04:40 02/01/18 04:40 Laboratory Results - last 24 hr 01/31/18 02/01/18 02/01/18 15:20 04:00 04:40 WBC 3.5 L RBC 1.92 L Hgb 6.9 L* Hct 19.2 L* MCV 100.0 MCH 35.9 H MCHC 35.9 RDW 15.5 Plt Count 74 L MPV 8.4 Prelim Diff (Auto) Slide review pending Neut % (Auto) 54.0 Lymph % (Auto) 38.1 [place] % (Auto) 7.7 Eos % (Auto) 0.0 Baso % (Auto) 0.2 Neut # (Auto) 1.9 Lymph # (Auto) 1.3 [place] # (Auto) 0.3 Eos # (Auto) 0.0 Baso # (Auto) 0.0 WBC Differential Manual diff final Seg Neuts % (Manual) 43 Band Neuts % (Manual) 24 H Lymphocytes % (Manual) 23 Monocytes % (Manual) 9 H Myelocytes % (Man) 1 H Abs Neuts (Manual) 2.4 Differential Comment . Toxic Granulation 1+ H Platelet Estimate Low L Platelet Morphology Normal RBC Morphology Sodium Potassium Chloride Carbon Dioxide Anion Gap BUN Creatinine Estimated GFR Random Glucose Calcium Prot Corrected Calcium Phosphorus Magnesium Total Protein Urine Color Yellow Urine Clarity Cloudy H Urine pH 5.0 Ur Specific [place] 1.017 Urine Protein 30 H Urine Glucose (UA) Negative Urine Ketones Negative Urine Occult Blood Small H Urine Nitrate Negative Urine Bilirubin Negative Urine Urobilinogen Less than 2 Ur Leukocyte Esterase Negative Urine RBC Less than 1 Urine WBC 6 H Ur Squamous Epith Cells <1 Urine Bacteria Rare H Urine Mucus Few H Micro UA Comment Cath-culture ind Ur Microscopic Review Not Reportable Urine Culture Comments Cath-cult indicated Blood Type O Negative Antibody Screen Negative MTS Gel Crossmatch See Detail 02/01/18 04:40 WBC RBC Hgb Hct MCV MCH MCHC RDW Plt Count MPV Prelim Diff (Auto) Neut % (Auto) Lymph % (Auto) [place] % (Auto) Eos % (Auto) Baso % (Auto) Neut # (Auto) Lymph # (Auto) [place] # (Auto) Eos # (Auto) Baso # (Auto) WBC Differential Seg Neuts % (Manual) Band Neuts % (Manual) Lymphocytes % (Manual) Monocytes % (Manual) Myelocytes % (Man) Abs Neuts (Manual) Differential Comment Toxic Granulation Platelet Estimate Platelet Morphology RBC Morphology Sodium 144 Potassium 3.2 L Chloride 112 H Carbon Dioxide 19.7 L Anion Gap 12 BUN 7 Creatinine 0.66 Estimated GFR 87 L Random Glucose 143 H Calcium 7.2 L* Prot Corrected Calcium 8.6 Phosphorus 2.5 Magnesium 2.1 D Total Protein 4.6 L Urine Color Urine Clarity Urine pH Ur Specific [place] Urine Protein Urine Glucose (UA) Urine Ketones Urine Occult Blood Urine Nitrate Urine Bilirubin Urine Urobilinogen Ur Leukocyte Esterase Urine RBC Urine WBC Ur Squamous Epith Cells Urine Bacteria Urine Mucus Micro UA Comment Ur Microscopic Review Urine Culture Comments Blood Type Antibody Screen MTS Gel Crossmatch Microbiology 01/31/18 15:54 Blood - Peripheral Aerobic Blood Culture - Preliminary No growth in 1 day 01/31/18 15:54 Blood - Peripheral Anaerobic Blood Culture - Preliminary No growth in 1 day 01/31/18 15:30 Blood - Peripheral Aerobic Blood Culture - Preliminary No growth in 1 day 01/31/18 15:30 Blood - Peripheral Anaerobic Blood Culture - Preliminary No growth in 1 day 01/28/18 17:37 Blood - Peripheral Aerobic Blood Culture - Preliminary No growth in 4 days 01/28/18 17:37 Blood - Peripheral Anaerobic Blood Culture - Preliminary No growth in 4 days 01/28/18 16:25 Blood - Peripheral Aerobic Blood Culture - Preliminary No growth in 4 days 01/28/18 16:25 Blood - Peripheral Anaerobic Blood Culture - Preliminary No growth in 4 days - Imaging Impressions Chest X-Ray 01/31/18 15:11 CONCLUSION: 1. New patchy infiltrate in the right lower lung. 2. Stable parenchymal infiltrates in the left apex and left lower lung. Assessment and Plan - Assessment (1) Encephalopathy Code(s): G93.40 - Encephalopathy, unspecified Status: Acute (2) PNA (pneumonia) Code(s): J18.9 - Pneumonia, unspecified organism Status: Acute (3) Metastatic lung carcinoma Code(s): C78.00 - Secondary malignant neoplasm of unspecified lung Status: Acute (4) Pancytopenia Code(s): D61.818 - Other pancytopenia Status: Acute (5) Weakness Code(s): R53.1 - Weakness Status: Acute (6) Hypokalemia Code(s): E87.6 - Hypokalemia Status: Acute - Plan 77-year-old female with: Encephalopathy/ Weakness Progressive confusion/forgetfulness per family. The pt has also lost the ability to walk over the past few weeks. Exam with LLE weakness and bilateral weakness in dorsiflexion. CT Head w/ no acute findings. U/a currently normal. Progressive lower extremity weakness per family, h/o L-Spine lesion w/ previous radiation by Dr. Calle. MRI of the brain is stable. 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 Neurology consult appreciated. -PT/OT. -Neuro Checks. -antibiotics. -Will likely need HHC. Acute respiratory failure secondary to PNA. Respiratory status worsened on the night of 01/31/18 -will continue w/ IV Abx. vancomycin and Zosyn to cover for HCAP. -DuoNeb and oxygen prn. -follow culture data. NGTD. 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 Livingston. Oncology consult appreciated. -follow up with oncology. -Worsening anemia. Transfused 2 units of PRBC today. -hospice consult appreciated. Pt and family not ready for hospice at this time. Melendrez catheter for comfort per patient request in the setting of possible hospice care. Hypokalemia: - Replace and monitor Malnutrition The pt has decreased PO intake. -ADAT. -dietary consult. Discharge Planning: Continue antibiotics treatment for pneumonia. Hospice to meet with the family.
[2018-02-01] MEDS ORDERED: Pharmacy Ordered Lab Info OTHER ONE (11:45)
[2018-02-02] MEDS: Potassium Phosphate 500 MG Soluble Tablet PO SCH ×3 (00:14→21:09)
[2018-02-02] MEDS: Sodium Chloride 0.9% 2 ML Flush BID IV.FLUSH SCH ×3 (00:14→22:12)
[2018-02-02] MEDS: Piperacil/Tazo 4.5 GM Premix 4.5 GM/100 ML BAG IV.SIG SCH ×5 (00:16→21:16)
[2018-02-02] MEDS: oxyCODONE/Acetaminophen 10/325 Tablet PO PRN ×3 (04:36→15:00)
[2018-02-02] MEDS: Vancomycin Inj 1,000 MG in Sodium Chlor 0.9% Inj 250 ML IV.SIG SCH (05:43)
[2018-02-02] MEDS: MethylPREDNISolone Sod Succinate Inj 40 MG/ML Vial IV.PUSH SCH ×3 (05:47→21:17)
[2018-02-02] MEDS ORDERED: Sodium Chloride 0.65% Nasal Spray 45 ML Bottle EACH NARE PRN (07:52)
--- NOTE | 2018-02-02 09:33 | P.PNONC ---
Subjective Interval history: Afebrile. Patient reports intermittent shortness of breath. She is currently working with physical therapy and with minimal leg movement, he reports that her O2 saturation drops into the 80s. Patient also complains of a dry nasal passages. She is requesting her pain pill. Her pain is mainly in her left shoulder and arm, however she reports she also gets sharp pains in the right arm and and other various locations. Objective Vital Signs/Intake & Output: Vital Signs 02/01/18 09:35 02/01/18 11:01 02/01/18 11:34 Temperature 97.8 F 97.4 F L 98 F Pulse Rate 80 84 83 Respiratory Rate 20 16 20 Blood Pressure 138/74 138/74 138/77 Pulse Oximetry 98 98 100 02/01/18 12:25 02/01/18 16:00 02/01/18 17:17 Temperature Pulse Rate 89 69 Respiratory Rate Blood Pressure Pulse Oximetry 100 02/01/18 17:42 02/01/18 20:20 02/01/18 21:29 Temperature 98.1 F 97.3 F L Pulse Rate 87 77 83 Respiratory Rate 20 18 20 Blood Pressure 137/82 138/77 Pulse Oximetry 94 L 02/02/18 00:00 02/02/18 00:09 02/02/18 04:00 Temperature 97.0 F L Pulse Rate 78 86 61 Respiratory Rate 18 Blood Pressure 147/74 H Pulse Oximetry 96 02/02/18 04:27 02/02/18 05:06 02/02/18 07:26 Temperature 97.0 F L Pulse Rate 73 74 Respiratory Rate 19 17 Blood Pressure 138/83 Pulse Oximetry 96 02/02/18 08:15 Temperature Pulse Rate 74 Respiratory Rate 15 Blood Pressure Pulse Oximetry 92 L Intake & Output 02/01/18 02/02/18 02/02/18 18:59 06:59 18:59 Intake Total 460 / 460 1167.5 / 1167.5 250 / 250 Output Total 875 / 875 600 / 600 Balance -415 / -415 567.5 / 567.5 250 / 250 Weight 52 kg Intake: IV 110 / 110 567.5 / 567.5 250 / 250 Zosyn 4.5 GM Premix 4.5 gm In 110 / 110 310 / 310 100 ml @ 200 mls/hr IV.SIG Q6H [facility] Rx#:[id number] Vancomycin Inj 1,000 MG In NS 250 / 250 Inj 250 ML @ 250 mls/hr IV.SIG Q18H [facility] Rx#:[id number] Vancomycin Inj 750 MG In NS Inj 257.5 / 257.5 250 ML @ 250 mls/hr IV.SIG Q12H [facility] Rx#:[id number] Oral 200 / 200 Intake (Blood Product) Amt 350 / 350 400 / 400 Rbc As-3 Leukoreduced Irrad 350 / 350 Unit [id number] Rbc As-3 Leukoreduced Irrad 0 / 0 400 / 400 Unit [id number] Output: Urine 200 / 200 Urine Amount (Catheter) 875 / 875 400 / 400 Indwelling Urethral Catheter 875 / 875 400 / 400 Other: Date of Last Bowel Movement 01/29/18 Result Diagrams: 02/01/18 04:40 02/01/18 04:40 Laboratory Results: Laboratory Results - last 24 hr 02/01/18 02/01/18 04:00 11:20 Vancomycin Trough 21.2 H Blood Type O Negative Antibody Screen Negative MTS Gel Crossmatch See Detail Culture Results: Microbiology 01/31/18 15:20 Urine Culture - Preliminary Catheterized Urine No growth in 24 hours 01/31/18 15:54 Aerobic Blood Culture - Preliminary Blood - Peripheral No growth in 1 day Anaerobic Blood Culture - Preliminary No growth in 1 day 01/31/18 15:30 Aerobic Blood Culture - Preliminary Blood - Peripheral No growth in 1 day Anaerobic Blood Culture - Preliminary No growth in 1 day 01/28/18 17:37 Aerobic Blood Culture - Preliminary Blood - Peripheral No growth in 4 days Anaerobic Blood Culture - Preliminary No growth in 4 days 01/28/18 16:25 Aerobic Blood Culture - Preliminary Blood - Peripheral No growth in 4 days Anaerobic Blood Culture - Preliminary No growth in 4 days Medications: Active Medications Generic Name Dose Route Start Last Admin Trade Name Freq PRN Reason Stop Dose Admin Acetaminophen 650 mg 01/27/18 19:51 01/31/18 15:00 Tylenol PO 325 mg Q4H PRN Administration Temp > 100.4 Albuterol 1 ampul 01/27/18 19:51 02/02/18 08:13 Duoneb Neb (Prn) NEB 1 ampul Q4HR NEB PRN Administration SOB/WHEEZING Piperacillin/Tazobactam/Dextrose 4.5 gm in 100 mls @ 200 mls/hr 01/28/18 16: 00 02/02/18 05:23 Zosyn 4.5 Gm Premix IV.SIG Infused Q6H [facility] Infusion Vancomycin HCl 1,000 mg/ 250 mls @ 250 mls/hr 02/02/18 06:00 02/02/18 07:13 Sodium Chloride IV.SIG Infused Q18H [facility] Infusion Methylprednisolone Sodium Succinate 40 mg 01/31/18 22:00 02/02/18 05:47 Solumedrol Inj IV.PUSH 40 mg Q8HR [facility] Administration Morphine Sulfate 2 mg 01/30/18 13:00 01/30/18 16:10 Morphine Inj IV.PUSH 2 mg Q4H PRN Administration PAIN 6-10;IF UNABLE TO TAKE PO Ondansetron HCl 4 mg 01/27/18 19:51 01/30/18 17:17 Zofran Inj IV.PUSH 4 mg Q6H PRN Administration NAUSEA OR VOMITING Oxycodone/Acetaminophen 1 tab 01/27/18 18:07 02/02/18 04:36 Percocet 10/325 Mg PO 1 tab Q4H PRN Administration Non-Acute Pain Potassium Phosphate 500 mg 01/29/18 11:00 02/02/18 00:14 K-Phos Original PO 500 mg BID [facility] Administration Senna/Docusate Sodium 1 tab 01/27/18 21:00 02/01/18 22:37 Concha-Colace PO Not Given BID [facility] Sodium Chloride 2 ml 01/31/18 21:00 02/02/18 00:14 Ns Flush IV.FLUSH 2 ml BID [facility] Administration Objective Remarks: GENERAL: Ill-appearing female patient, in no acute distress. SKIN: Warm and dry. HEAD: Normocephalic. EYES: No scleral icterus. No injection or drainage. NECK: Supple, trachea midline. CARDIOVASCULAR: Regular rate and rhythm without murmurs. RESPIRATORY: Anterior breath sounds clear, equal bilaterally. O2 4L via NC, 92%. GASTROINTESTINAL: Abdomen soft, non-tender, nondistended. EXTREMITIES: No cyanosis, or edema. MUSCULOSKELETAL: Decreased muscle tone. NEUROLOGICAL: No obvious focal deficit. Awake, alert, and oriented x3. PSYCHIATRIC: Appropriate mood and affect; insight and judgment normal. Assessment/Plan - Plan Ms. Cross is an 77-year-old female who is well-known to me from my outpatient practice. 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 Between the spring 2012 and very recently she had been on various targeted agents for management of her EGFR positive disease. She progressed on Tagrisso and was initiated on treatment with Keytruda. Following that she was initiated on palliative systemic therapy with carboplatin and Abraxane about 3 weeks ago. 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 She presented to the hospital with complaints of confusion, weakness and failure to thrive. 1. Metastatic lung carcinoma: Patient currently with poor performance status. Her oxygen saturation drops with minimal exertion. 2. Hospice services were contacted, however the patient did not wish to proceed at this time. 3. Hemoglobin low at 6.9 yesterday. Patient status post 2 units PRBCs. CBC today pending. 4. Nasal saline mist to dry mucous membranes. 4. Continue working with physical therapy to try to regain strength. 5. Continue supportive care.
[2018-02-02] MEDS: Senna/Docusate Sodium 8.6/50 MG Tablet PO SCH ×3 (09:35→21:09)
[2018-02-02 10:58] LABS: Baso % (Auto) 0.1 % (0.0-2.0); Hemoglobin 10.9 gm/dL (11.6-15.3); Lymph # (Auto) 1.2 th/mm3 (1.0-4.8); Mean Corpuscular Hemoglobin 37.6 pg (27.0-34.0); Mean Corpuscular Volume 100.4 fL (80.0-100.0); Mean Platelet Volume 8.6 fL (7.0-11.0); Mono # (Auto) 0.9 th/mm3 (0.0-0.9); Mono % (Auto) 14.4 % (0.0-8.0); Neut % (Auto) 66.5 % (16.0-70.0); Platelet Count 88 th/mm3 (150-450); Red Blood Count 2.89 mil/mm3 (4.00-5.30); Red Cell Distribution Width 17.1 % (11.6-17.2); White Blood Count 6.1 th/mm3 (4.0-11.0)
[2018-02-02 11:11] LABS: Mean Corpuscular HGB Conc 37.5 % (32.0-36.0)
[2018-02-02 11:15] LABS: Alanine Aminotransferase 18 U/L (10-53); Albumin 1.6 g/dL (3.4-5.0); Anion Gap 15 meq/L (5-15); Aspartate Aminotransferase 26 U/L (15-37); Blood Urea Nitrogen 11 mg/dL (7-18); Calcium 7.6 mg/dL (8.5-10.1); Carbon Dioxide 20.3 meq/L (21.0-32.0); Chloride 109 meq/L (98-107); Glomerular Filtration Rate 71 mL/min (>89); Glucose,Random 143 mg/dL (74-106); Potassium 3.1 meq/L (3.5-5.1); Sodium 144 meq/L (136-145)
[2018-02-02 11:17] LABS: Alkaline Phosphatase 78 U/L (45-117); Total Protein 5.3 g/dL (6.4-8.2)
--- NOTE | 2018-02-02 13:13 | P.PNIM ---
Subjective Interval history: Patient continues to have intermittent episodes of shortness of breath. She believes it is related to anxiety. Discussed with her niece at bedside, she is not eating much. Family requesting appetite stimulant. Physical Exam Vital signs: Vital Signs 02/01/18 16:00 02/01/18 17:17 02/01/18 17:42 Temperature 98.1 F Pulse Rate 69 87 Respiratory Rate 20 Blood Pressure 137/82 Pulse Oximetry 100 02/01/18 20:20 02/01/18 21:29 02/02/18 00:00 Temperature 97.3 F L Pulse Rate 77 83 78 Respiratory Rate 18 20 Blood Pressure 138/77 Pulse Oximetry 94 L 02/02/18 00:09 02/02/18 04:00 02/02/18 04:27 Temperature 97.0 F L 97.0 F L Pulse Rate 86 61 73 Respiratory Rate 18 19 Blood Pressure 147/74 H 138/83 Pulse Oximetry 96 96 02/02/18 05:06 02/02/18 07:26 02/02/18 08:15 Temperature Pulse Rate 74 74 Respiratory Rate 17 15 Blood Pressure Pulse Oximetry 92 L 02/02/18 12:00 Temperature Pulse Rate 99 H Respiratory Rate Blood Pressure Pulse Oximetry Intake & Output 02/01/18 02/02/18 02/02/18 18:59 06:59 18:59 Intake Total 460 / 460 1167.5 / 1167.5 600 / 600 Output Total 875 / 875 600 / 600 Balance -415 / -415 567.5 / 567.5 600 / 600 Weight 52 kg Intake: IV 110 / 110 567.5 / 567.5 600 / 600 Zosyn 4.5 GM Premix 4.5 gm In 110 / 110 310 / 310 100 / 100 100 ml @ 200 mls/hr IV.SIG Q6H [facility] Rx#:[id number] NS Inj 250 ML @ 15 mls/hr IV. 250 / 250 SIG ONCE [facility] Rx#:[id number] Vancomycin Inj 1,000 MG In NS 250 / 250 Inj 250 ML @ 250 mls/hr IV.SIG Q18H [facility] Rx#:[id number] Vancomycin Inj 750 MG In NS Inj 257.5 / 257.5 250 ML @ 250 mls/hr IV.SIG Q12H [facility] Rx#:[id number] Oral 200 / 200 Intake (Blood Product) Amt 350 / 350 400 / 400 Rbc As-3 Leukoreduced Irrad 350 / 350 Unit [id number] Rbc As-3 Leukoreduced Irrad 0 / 0 400 / 400 Unit [id number] Output: Urine 200 / 200 Urine Amount (Catheter) 875 / 875 400 / 400 Indwelling Urethral Catheter 875 / 875 400 / 400 Other: Date of Last Bowel Movement 01/29/18 Narrative: GENERAL: Elderly and frail female in no acute distress.. CARDIOVASCULAR: Normal rate and regular rhythm without murmurs, gallops, or rubs. RESPIRATORY: Good respiratory efforts. Breath sounds equal and clear to auscultation bilaterally. GASTROINTESTINAL: Abdomen soft, non-tender, non-distended. Normal active bowel sounds MUSCULOSKELETAL: Extremities without cyanosis, or edema. NEURO: Moving both upper and lower extremities spontaneously. LLE with 4/5 strength, RLE with 5/5 strength. LEs with weakness in dorsiflexion. Sensation intact. PSYCH: Appropriate mood and affect. Somewhat anxious. - Urinary Catheter Management Straight Cath placed during this visit: yes, but has since been removed by the nurse Reason for continuing: Not indwelling catheter Insertion date: 01/27/18 Insertion time: 17:29 Removal date: 01/27/18 Indwelling Urethral Catheter Cath placed during this visit: yes Reason for continuing: Terminally ill/Comfort care Insertion date: 01/31/18 Insertion time: 14:21 Results - Labs CBC & Chem 7: 02/02/18 09:45 02/02/18 09:45 Laboratory Results - last 24 hr 02/01/18 02/02/18 02/02/18 04:00 09:45 09:45 WBC 6.1 RBC 2.89 L Hgb 10.9 L D Hct 29.0 L MCV 100.4 H MCH 37.6 H MCHC 37.5 H RDW 17.1 Plt Count 88 L MPV 8.6 Prelim Diff (Auto) Slide review pending Neut % (Auto) 66.5 Lymph % (Auto) 19.0 [place] % (Auto) 14.4 H Eos % (Auto) 0.0 Baso % (Auto) 0.1 Neut # (Auto) 4.0 Lymph # (Auto) 1.2 [place] # (Auto) 0.9 Eos # (Auto) 0.0 Baso # (Auto) 0.0 Differential Comment . Sodium 144 Potassium 3.1 L Chloride 109 H Carbon Dioxide 20.3 L Anion Gap 15 BUN 11 Creatinine 0.79 Estimated GFR 71 L Random Glucose 143 H Calcium 7.6 L Total Bilirubin 0.3 AST 26 ALT 18 Alkaline Phosphatase 78 Total Protein 5.3 L D Albumin 1.6 L Blood Type O Negative Antibody Screen Negative MTS Gel Crossmatch See Detail Microbiology 01/31/18 15:54 Blood - Peripheral Aerobic Blood Culture - Preliminary No growth in 2 days 01/31/18 15:54 Blood - Peripheral Anaerobic Blood Culture - Preliminary No growth in 2 days 01/31/18 15:30 Blood - Peripheral Aerobic Blood Culture - Preliminary No growth in 2 days 01/31/18 15:30 Blood - Peripheral Anaerobic Blood Culture - Preliminary No growth in 2 days 01/28/18 17:37 Blood - Peripheral Aerobic Blood Culture - Final No growth in 5 days 01/28/18 17:37 Blood - Peripheral Anaerobic Blood Culture - Final No growth in 5 days 01/28/18 16:25 Blood - Peripheral Aerobic Blood Culture - Final No growth in 5 days 01/28/18 16:25 Blood - Peripheral Anaerobic Blood Culture - Final No growth in 5 days 01/31/18 15:20 Catheterized Urine Urine Culture - Final No growth in 48 hours Assessment and Plan - Assessment (1) Encephalopathy Code(s): G93.40 - Encephalopathy, unspecified Status: Acute (2) PNA (pneumonia) Code(s): J18.9 - Pneumonia, unspecified organism Status: Acute (3) Metastatic lung carcinoma Code(s): C78.00 - Secondary malignant neoplasm of unspecified lung Status: Acute (4) Pancytopenia Code(s): D61.818 - Other pancytopenia Status: Acute (5) Weakness Code(s): R53.1 - Weakness Status: Acute (6) Hypokalemia Code(s): E87.6 - Hypokalemia Status: Acute - Plan 77-year-old female with: Acute respiratory failure secondary to PNA. Respiratory status worsened on the night of 01/31/18 -will continue w/ IV Abx. vancomycin and Zosyn to cover for HCAP. -DuoNeb and oxygen prn. -follow culture data. NGTD. -Add incentive spirometry. Will consider de-escalating antibiotics if remain afebrile for the next 24 hours. Encephalopathy/ Weakness Progressive confusion/forgetfulness per family. The pt has also lost the ability to walk over the past few weeks. Exam with LLE weakness and bilateral weakness in dorsiflexion. CT Head w/ no acute findings. U/a currently normal. Progressive lower extremity weakness per family, h/o L-Spine lesion w/ previous radiation by Dr. Calle. MRI of the brain is stable. 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 Neurology consult appreciated. -PT/OT. -Neuro Checks. -antibiotics. -Will likely need C. 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 Livingston. Oncology consult appreciated. -follow up with oncology. -S/P 2 units of PRBC transfusion. H&H stable today. -hospice consult appreciated. Pt and family not ready for hospice at this time. Hypokalemia: - Replace and monitor Malnutrition The pt has decreased PO intake. -ADAT. -dietary consult. - Add Megace Discharge Planning: Continue antibiotics treatment for pneumonia. Follow for improvement of respiratory status. PT efforts.
[2018-02-02 13:30] LABS: Lymphocytes 5 % (9-44); Metamyelocytes 1 % (0-1); Monocytes 4 % (0-8); Myelocytes 1 % (0-0); Rouleaux Present; Toxic Granulation 2+
[2018-02-02 13:31] LABS: Platelet Morphology Normal (Normal)
--- NOTE | 2018-02-02 17:09 | XR ---
EXAM DATE: 02/02/2018 4:03 PM EDT AGE/SEX: 77 years / Female INDICATIONS: Short of breath. CLINICAL DATA: This is the patient's initial encounter. Patient reports that signs and symptoms have been present for 4 - 6 days and indicates a pain score of 0/10. MEDICAL/SURGICAL HISTORY: . Carcinoma, breast. Carcinoma, lung. Carcinoma, head and neck. . . Breast lumpectomy. COMPARISON: [facility] [place], CHEST 1V SINGLE AP, 01/27/2018. . FINDINGS: A single AP semierect view of the chest was obtained and demonstrates the right-sided implantable por t catheter in place. There is been interval increase in the diffuse airspace opacity in both lungs. T he costophrenic angles are not well-visualized and may be blunted. The heart size remains enlarged. A therosclerotic changes are present in the aorta. Left apical pleural-parenchymal changes again noted. There are overlying electrocardiogram leads and oxygen tubing. CONCLUSION: Interval increase in diffuse airspace opacity which could represent pulmonary edema. Electronically signed by: David Alaniz MD 02/02/2018 5:08 PM EDT
[2018-02-02] MEDS: Morphine Sulfate Inj 2 MG/ML Vial IV.PUSH PRN (21:17)
[2018-02-03] MEDS: Morphine Sulfate Inj 2 MG/ML Vial IV.PUSH PRN ×3 (01:07→08:59)
[2018-02-03] MEDS: Vancomycin Inj 1,000 MG in Sodium Chlor 0.9% Inj 250 ML IV.SIG SCH (01:13)
[2018-02-03] MEDS: MethylPREDNISolone Sod Succinate Inj 40 MG/ML Vial IV.PUSH SCH ×2 (05:08→14:39)
[2018-02-03] MEDS: Piperacil/Tazo 4.5 GM Premix 4.5 GM/100 ML BAG IV.SIG SCH ×2 (05:08→12:11)
[2018-02-03 05:30] VITALS: TEMP 97.4
[2018-02-03] MEDS: Senna/Docusate Sodium 8.6/50 MG Tablet PO SCH (09:22)
[2018-02-03] MEDS: Sodium Chloride 0.9% 2 ML Flush BID IV.FLUSH SCH (09:22)
[2018-02-03] MEDS: Potassium Phosphate 500 MG Soluble Tablet PO SCH (09:22)
[2018-02-03 09:37] VITALS: O2SAT 99
[2018-02-03 09:38] VITALS: BP 131/82; PULSE 84; RESP 20
[2018-02-03] MEDS ORDERED: clonazePAM 1 MG Tablet PO SCH (11:45)
--- NOTE | 2018-02-03 13:00 | P.DS ---
Date of admission: 01/29/18 10:53 Primary care physician: Lawrence Bunch MD Brief History from admission: HPI from the admitting physician This is a 77-year-old female with a PMH of Metastatic Lung CA w/ [employer]/Bone Mets, h/o Breast CA and h/o Breast CA who was brought to the ER by family secondary to confusion and worsening weakness. Unable to obtain history from patient at this time as she is lethargic from Ativan she received for CT. History obtained from Ex- at bedside who is her costume shop manager in addition to pt's niece. Per Ex-, pt was driving and walking as usual approx 2wks ago, however has had progressive decline in function due to lower extremity weakness. Notes symptoms worse in the last 1wk. Also noted to have increasing confusion/forgetfulness x2-3 days. No reported fever/chills or recent illness. Follows w/ Dr. Livingston and undergoing chemotherapy, s/p Radiation by Dr. Calle to Lumbar Spine. On arrival, BP 161/78, HR 96, O2 sat 100% on 2L NC, Temp 99. WBC 2.3, Hemoglobin 8.8, Platelets 68, previously WBC 2.4, Hemoglobin 10.4 and Platelets 85 on 01/20/2018. K+ 3.1. UA negative for UTI. CXR with left lung base consolidation. CT Head with no acute findings, stable subcentimeter focus of enhancement in left basal ganglia. S/p eval in ER by Dr. Livingston, will re-eval for treatment options vs possible hospice. Patient update on day of discharge: Unfortunately the patient deteriorated today, her respiratory and mental status worsened. I discussed the case with family at bedside at length. Also discussed with oncologist Dr. Livingston. The patient is appropriate for hospice. The family elected to transition her to comfort care with hospice services. She will be transferred to the hospice care center. DS: Diagnosis - Discharge Diagnosis (1) Encephalopathy Status: Acute (2) PNA (pneumonia) Status: Acute (3) Metastatic lung carcinoma Status: Acute (4) Pancytopenia Status: Acute (5) Weakness Status: Acute (6) Hypokalemia Status: Acute DS: Summary Hospital Course: 77-year-old female with metastatic lung cancer who presented to the hospital in acute encephalopathy and progressive weakness. The patient apparently has been declining. She has been receiving chemotherapy and radiation therapy outpatient. On presentation to the emergency room, the patient was found to be in respiratory failure with pleural effusions and probable pneumonia. She was also noted to be pancytopenic. During the course of her hospitalization, the patient continues to decline. She was put on broad-spectrum IV antibiotics for pneumonia, IV fluids, steroids and breathing treatments. She was followed by her oncologist, Dr. Livingston. Patient's encephalopathy did improve. However she remains profoundly weak. She had an episode of probable aspiration as well. She did require blood transfusion. Despite maximal medical management, the patient continues to decline. Per discussion with her oncologist, it was evident the patient was failing therapy at this time and he is appropriate for hospice services. The patient's family ultimately decided to transition her to comfort care only with hospice services. - Time Spent with Patient Total time spent providing and/or coordinating discharge services: Greater than 30 minutes - Quality: VTE Deep Vein Thrombosis/Pulmonary Embolism Present on Admission: No Exam Vital signs: Vital Signs 02/02/18 15:26 02/02/18 16:00 02/02/18 20:00 Temperature 97.5 F L Pulse Rate 140 H 116 H 80 Respiratory Rate 19 22 Blood Pressure 121/75 Pulse Oximetry 99 02/02/18 21:13 02/02/18 21:19 02/03/18 00:00 Temperature 97.7 F Pulse Rate 76 96 H Respiratory Rate 20 19 20 Blood Pressure 115/80 126/84 Pulse Oximetry 100 96 02/03/18 01:21 02/03/18 04:00 02/03/18 05:24 Temperature 97.4 F L Pulse Rate 86 Respiratory Rate 18 20 19 Blood Pressure 122/80 Pulse Oximetry 98 02/03/18 07:10 02/03/18 08:00 Temperature Pulse Rate 80 84 Respiratory Rate 20 Blood Pressure 131/82 Pulse Oximetry 99 Intake & Output 02/02/18 02/03/18 02/03/18 18:59 06:59 18:59 Intake Total 725 / 725 450 / 450 100 / 100 Output Total 600 / 600 400 / 400 Balance 125 / 125 50 / 50 100 / 100 Weight 60.6 kg Intake: IV 700 / 700 450 / 450 100 / 100 Zosyn 4.5 GM Premix 4.5 gm In 200 / 200 200 / 200 100 / 100 100 ml @ 200 mls/hr IV.SIG Q6H JEREMÍAS Rx#:[id number] NS Inj 250 ML @ 15 mls/hr IV. 250 / 250 SIG ONCE JEREMÍAS Rx#:[id number] Vancomycin Inj 1,000 MG In NS 250 / 250 250 / 250 Inj 250 ML @ 250 mls/hr IV.SIG Q18H JEREMÍAS Rx#:[id number] Oral 25 / 25 Output: Urine 600 / 600 Urine Amount (Catheter) 400 / 400 Indwelling Urethral Catheter 400 / 400 Other: Date of Last Bowel Movement 01/29/18 01/29/18 Narrative: GENERAL: Patient is in respiratory distress. CARDIOVASCULAR: Tachycardic rate RESPIRATORY: Shallow breathing, diffuse rhonchi and crackles. NEURO: Lethargic Results Procedures completed during hospitalization: None Labs on day of discharge: Labs from last 24 hours 02/02/18 09:45 WBC Differential Manual diff final Seg Neuts % (Manual) 64 Band Neuts % (Manual) 25 H Lymphocytes % (Manual) 5 L Monocytes % (Manual) 4 Metamyelocytes % (Man) 1 Myelocytes % (Man) 1 H Abs Neuts (Manual) 5.6 Toxic Granulation 2+ H Platelet Estimate Low L Platelet Morphology Normal Rouleaux Present H Preliminary micro results at discharge 01/31/18 15:54 Aerobic Blood Culture - Preliminary Blood - Peripheral No growth in 3 days Anaerobic Blood Culture - Preliminary No growth in 3 days 01/31/18 15:30 Aerobic Blood Culture - Preliminary Blood - Peripheral No growth in 3 days Anaerobic Blood Culture - Preliminary No growth in 3 days - Impressions ITS Impressions Head CT 01/27/18 16:07 CONCLUSION: 1. No acute intracranial abnormality demonstrated. 2. Atrophy and chronic white matter changes. 3. Stable subcentimeter focus of parenchymal enhancement in the region of the left basal ganglia/insular cortex. Head MRI 01/28/18 00:00 CONCLUSION: 1. Stable follow-up MRI of the brain compared to the prior examination. There continues to be a tiny area of enhancement involving the anterior left insular cortex which is actually smaller in size on today's study. Suspect this is most likely a blood vessel. 2. No definite enhancing mass occupying lesions are seen to indicate brain metastatic disease. 3. Stable bilateral cortical atrophy. Lumbar Spine MRI 01/28/18 00:00 CONCLUSION: 1. Compared to the prior examination of 11/30/2017, there has been no significant changes with the overall appearance of the lumbar spine. 2. 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 3. There continues to be focal severe spinal canal stenosis at L4-5 from grade 1 anterior spondylolisthesis of L4 over L5, diffuse disc bulging, facet arthritis and hypertrophy ligamentum flavum. This is not significantly changed. Thoracic Spine MRI 01/28/18 00:00 CONCLUSION: 1. Stable follow-up MRI of the thoracic spine compared to the prior examination. Specifically, no evidence of any focal or new bony metastatic disease involving the thoracic spine. 2. 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 Chest X-Ray 02/02/18 16:03 CONCLUSION: Interval increase in diffuse airspace opacity which could represent pulmonary edema. Discharge Plan - Discharge Disposition Patient Disposition: [facility] Hospice[facility]Med Facility - Discharge Condition Condition: Stable - Discharge Order Discharge Orders: Discharge Order (Routine); Ordered 02/03/18 Ordered By: Linnette Bowman - Physicians Team Primary Care Provider: Lawrence Bunch Attending Provider: Linnette Bowman Other Providers: Bernadette Mathews ; Wild Alston MD ; Earnest Livingston MD
[2018-02-03] MEDS ORDERED: Morphine Sulfate Inj 2 MG/ML Vial IV.PUSH ONE (14:30)
[2018-02-04] MEDS ORDERED: Pharmacy Ordered Lab Info OTHER ONE (11:45)
== END 2018-02-03 14:41 | disposition hospice, inpatient (51) ==
LOC: NEPE 14:54 → NEDA 14:54 → HCIN 22:19
PROVIDERS: ADMIT Family Medicine; ATTEND Family Medicine